=== PATIENT | female | born 1930 | race Caucasian/White ===

== ENCOUNTER 2016-07-05 14:01 | Observation (INO) | payer BC ==
[2016-07-05 14:07] VITALS: BMI 23.0
[2016-07-05 16:01] LABS: BASOPHIL 0.2 % (0-2.0); EOSINOPHIL 0.2 % (0-4.5); MCH 31.9 pg (25.7-33.7); MEAN CELL VOLUME 93.9 fl (80-96); MEAN PLT VOLUME 8.8 fl (7.5-11.1); NEUTROPHILS 88.7 % (42.8-82.8); PLATELET COUNT 262 K/MM3 (134-434); RDW 12.9 % (11.6-15.6); WHITE BLOOD COUNT 14.3 K/mm3 (4.0-10.0)
[2016-07-05 16:03] LABS: URINE APPEARANCE CLEAR; URINE BILIRUBIN NEGATIVE (NEGATIVE); URINE BLOOD NEGATIVE (NEGATIVE); URINE COLOR LTYELLOW; URINE GLUCOSE (UA) NEGATIVE (NEGATIVE); URINE KETONE 1+ (NEGATIVE); URINE LEUK ESTERASE NEGATIVE (NEGATIVE); URINE NITRITE NEGATIVE (NEGATIVE); URINE PROTEIN NEGATIVE (NEGATIVE); URINE UROBILINOGEN NEGATIVE E.U./dl (0.2-1.0)
--- NOTE | 2016-07-05 16:18 | PDOC ---
History of Present Illness - General History Source: Patient, Friend Exam Limitations: No Limitations <Jovanny Garsia - Last Filed: 07/05/16 18:46> - General History Source: Patient Exam Limitations: No Limitations <Reed Del Valle - Last Filed: 07/05/16 20:01> - General Chief Complaint: Syncope/Near Syncope Stated Complaint: SYNCOPE Time Seen by Provider: 07/05/16 14:09 - History of Present Illness Initial Comments: The patient is a 86 year old female, accompanied by friend, with a significant past medical history of hypertension, hyperlipidemia, anxiety, and dementia, who presents to the emergency department today for further evaluation of pre- syncope today. The patient states that at 1200 today she did some heavy gardening for 45 minutes and went inside with her friend. Friend states that she sat the patient down and the patient seemed generally weak, sweaty appearing and had brief period where she seemed confused. Patient reports associated blurred and darkening vision and a mild headache. The patient notes that her episode was 15 minutes in duration and that her symptoms have since resolved after EMS got there, per EMS pt was noted to be hypotensive and mildly bradycardic upon tehir arrival. The patient denies fever, chills. dysuria. The patient denies nausea, vomiting, and diarrhea. The patient denies chest pain, cough, and shortness of breath. PCP: Dr. Mckinney [phone] PAST MEDICAL HISTORY: HTN, hyperlipidemia, anxiety, dementia PAST SURGICAL HISTORY: No significant history reported FAMILY HISTORY: No pertinent history reported SOCIAL HISTORY: 2 drinks daily. MEDICATIONS: Reviewed ALLERGIES: As per nursing notes (Jovanny Garsia) Past History <Jovanny Garsia - Last Filed: 07/05/16 18:46> - Past Medical History HTN: Yes Hypercholesterolemia: Yes Suicide Attempt (Hx): No - Psycho/Social/Smoking Cessation Hx Anxiety: No Suicidal Ideation: No Smoking Status: No Smoking History: Never smoked Have you smoked in the past 12 months: No Number of Cigarettes Smoked Daily: 0 Cigars Per Day: 0 Information on smoking cessation initiated: No Hx Alcohol Use: Yes Drug/Substance Use Hx: No Substance Use Type: None Hx Substance Use Treatment: No <Reed Del Valle - Last Filed: 07/05/16 20:01> - Past Medical History Allergies/Adverse Reactions: Allergies Allergy/AdvReac Type Severity Reaction Status Date / Time amoxicillin [Amoxicillin] Allergy Rash Verified 07/05/16 14:05 bacitracin Allergy Verified 07/05/16 14:05 codeine [Codeine] Allergy Rash Verified 07/05/16 14:05 lorazepam [From Ativan] Allergy Verified 07/05/16 14:05 Penicillins Allergy Rash Verified 07/05/16 14:05 sertraline HCl [From Zoloft] Allergy Verified 07/05/16 14:05 Sulfa (Sulfonamide Allergy Verified 07/05/16 14:05 Antibiotics) sulfamethoxazole Allergy Verified 07/05/16 14:05 [From Bactrim] trimethoprim [From Bactrim] Allergy Verified 07/05/16 14:05 Home Medications: Ambulatory Orders Aspirin Chewable [Ever Children's Aspirin] 81 mg PO DAILY #0 tab.chew 03/20/11 Amlodipine Besylate [Norvasc -] 5 mg PO DAILY 07/11/15 Rivastigmine Tartrate [Exelon (Nf) -] 3 mg PO BID@0800,1730 07/05/16 Review of Systems - Review of Systems Able to Perform ROS?: Yes <Jovanny Garsia - Last Filed: 07/05/16 18:46> <Reed Del Valle - Last Filed: 07/05/16 20:01> - Review of Systems Comments:: CONSTITUTIONAL: Reported: Generalized weakness, diaphoretic No reported: Fever, Chills,Malaise, Loss of Appetite HEENT: Reported: Blurred vision, darkening vision. No reported: Rhinorrhea, Nasal Congestion, Throat Pain, Throat Swelling, Difficulty Swallowing, Mouth Swelling, Ear Pain, Eye Pain. CARDIOVASCULAR: Reported: Pre-Syncope No reported: Chest Pain, Palpitations, Irregular Heart Rate, Lightheadedness, Peripheral Edema RESPIRATORY: No reported: Cough, Shortness of Breath, SOB with Exertion, Orthopnea, Wheezing , Stridor, Hemoptysis GASTROINTESTINAL: No reported: Abdominal pain, Abdominal Distension, Nausea, Vomiting, Diarrhea, Constipation, Melena, Hematochezia GENITOURINARY: No reported: Dysuria, Frequency, Urgency, Hesitancy, Flank Pain, Genital Pain MUSCULOSKELETAL: No reported: Myalgia, Arthralgia, Joint Swelling, Back pain, Neck Pain SKIN: No reported: Rash, Itching, Pallor HEMATOLOGIC/IMMUNOLOGIC: No reported: Easy Bleeding, Easy Bruising, Lymphadenopathy, Frequent infections ENDOCRINE: No reported: Unexplained Weight Gain, Unexplained Weight Loss, Heat Intolerance , Cold Intolerance NEUROLOGIC: Reported: Difficulty speaking, mild headache. No reported: Headache, Focal Weakness, Paresthesias, Vertigo, Lightheadedness, Incontinence PSYCHIATRIC: No reported: Anxiety, Depression (AdyJovanny) *Physical Exam <Jovanny Garsia - Last Filed: 07/05/16 18:46> <Reed Del Valle - Last Filed: 07/05/16 20:01> - Vital Signs Last Vital Signs Temp Pulse Resp BP Pulse Ox 97.3 F L 66 20 152/81 100 07/05/16 14:05 07/05/16 14:05 07/05/16 14:05 07/05/16 14:05 07/05/16 14:05 - Physical Exam Comments: GENERAL: The patient is awake, alert, and fully oriented, Nontoxic - in no acute distress. HEAD: Normocephalic, atraumatic. EYES: extraocular movements intact, sclera anicteric, conjunctiva clear. ENT: Normal voice, Moist mucous membranes. NECK: Normal range of motion, No JVD LUNGS: Breath sounds equal, clear to auscultation bilaterally. No wheezes, no rhonchi, no rales. HEART: Regular rate and rhythm, normal S1 and S2 without murmur, rub or gallop. ABDOMEN: Soft, nontender, normoactive bowel sounds. No guarding, no rebound. No masses. No CVA tenderness EXTREMITIES: Normal range of motion, no edema. No clubbing or cyanosis. No cords , erythema, or tenderness. NEUROLOGICAL: No facial asymmetry. PSYCH: Normal mood, normal affect. SKIN: Warm, Dry, normal turgor. (Jovanny Garsia) Heart Score/ECG Review <Jovanny Garsia - Last Filed: 07/05/16 18:46> <Reed Del Valle - Last Filed: 07/05/16 20:01> - ECG Impressions Comment:: 07/05/16 16:41 Twelve-lead EKG was performed and reviewed by me. There is normal sinus rhythm with a normal rate. Rate of 68 The axis is normal. The intervals are normal. There is normal R wave progression There are no ST or T wave abnormalities. Impression: Normal twelve-lead EKG (Reed Del Valle) ED Treatment Course - LABORATORY CBC & Chemistry Diagram: 07/05/16 15:08 07/05/16 15:08 <Jovanny Garsia - Last Filed: 07/05/16 18:46> - LABORATORY CBC & Chemistry Diagram: 07/05/16 15:08 07/05/16 15:08 <Reed Del Valle - Last Filed: 07/05/16 20:01> - ADDITIONAL ORDERS Additional order review: Laboratory Results 07/05/16 07/05/16 15:08 15:08 Sodium 138 Potassium 3.4 L Chloride 101 Carbon Dioxide 25 Anion Gap 12 BUN 10 Creatinine 0.6 Creat Clearance w eGFR > 60 Random Glucose 112 H Calcium 8.5 Magnesium 2.3 Total Bilirubin 0.7 D AST 20 D ALT 20 Alkaline Phosphatase 87 Creatine Kinase 98 Troponin I < 0.02 Total Protein 6.9 Albumin 3.7 Urine Color Ltyellow Urine Appearance Clear Urine pH 8.0 Ur Specific [place] 1.015 Urine Protein Negative Urine Glucose (UA) Negative Urine Ketones 1+ H Urine Blood Negative Urine Nitrite Negative Urine Bilirubin Negative Urine Urobilinogen Negative Ur Leukocyte Esterase Negative 07/05/16 15:08 RBC 4.28 MCV 93.9 MCHC 34.0 RDW 12.9 MPV 8.8 Neutrophils % 88.7 H Lymphocytes % 6.5 L D Monocytes % 4.4 Eosinophils % 0.2 Basophils % 0.2 - RADIOLOGY Radiology Studies Ordered: Category Date Time Status CHEST X-RAY PORTABLE* [RAD] Stat Radiology 07/05/16 14:33 Completed Radiograph Interpretation: 07/05/16 16:19 EXAM#: TYPE/EXAM: RESULT: [id number] RAD/CHEST X-RAY PORTABLE* Syncope Portable chest x-ray AP sitting. Since 07/11/2015, the cardiac silhouette remains borderline in size with mild unfolding of the aortic arch and mild perihilar increased lung markings. Mediastinum and visualized osseous structures appear intact Impression: No significant interval change or acute lung disease is present. Reported By: Anabelle Blue MD 07/05/16 4071 (Jovanny Garsia) - Medications Given in the ED: ED Medications Discontinued Medications Generic Name Dose Route Start Last Admin Trade Name Unruly PRN Reason Stop Dose Admin Potassium Chloride 40 meq 07/05/16 18:57 07/05/16 19:17 K-Dur - PO 07/05/16 18:58 40 meq ONCE ONE Administration Medical Decision Making <DarrianJovanny cohen - Last Filed: 07/05/16 18:46> <EligioReed - Last Filed: 07/05/16 20:01> - Medical Decision Making 07/05/16 17:33 First call placed to Dr. Mckinney. Awaiting call back. 07/05/16 17:44 Dr. Davies recreational therapy aide for Dr. Mckinney. Case discussed. (Jovanny Garsia) 07/05/16 16:38 86y F hx of htn, hl, anxiety, dementia, presents with a complaint of sycnope - pt was feeling well thsi morning and was gardening, after gardening pt had an episode of diaphoresis, confusion, weakness, darkening vision and seemed confused for ~15 minutes, EMS noted the pt to be bradycardic and hypotensive upon their arrival. Pt currently asymptomatic. 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 I have reviewed the details of the note, within reason, and agree with the documentation with the following case summary and management plan written by me 07/05/16 18:12 labs reviewed nteo for leukocytosis, however no clinical signs nor laboratory evidence of infection electrolytes unremarkble trop neg x 1 ua unremarkable case dw/ dr. Davies, covering for PMD agree with observation admission will place in telemetry case dw MARIETTA Aguiar agree Case discussed in detail with admitting physician including history, physical exam and ancillary studies. Admitting physician has assumed care for the patient, will follow all pending diagnostics and will complete the evaluation and treatment. 07/05/16 19:59 Family: Son - Teo Lockett [phone] Daugther - Esperanza Lockett [phone] 07/05/16 20:00 (Reed Del Valle) *DC/Admit/Observation/Transfer <Jovanny Garsia - Last Filed: 07/05/16 18:46> - Discharge Dispostion Admit: Yes <Reed Del Valle - Last Filed: 07/05/16 20:01> Diagnosis at time of Disposition: Pre-syncope - Referrals - Attestations Scribe Attestion: Documentation prepared by Jovanny Garsia, acting as diagnostic medical sonographer for Reed Del Valle MD. (Jovanny Garsia)
[2016-07-05 16:26] LABS: ALBUMIN 3.7 g/dl (3.4-5.0); ANION GAP 12 (8-16); BILIRUBIN,TOTAL 0.7 mg/dL (0.2-1.0); CALCIUM 8.5 mg/dL (8.5-10.1); CO2 25 mmol/L (21-32); CREATININE 0.6 mg/dL (0.55-1.02); GLUCOSE,RANDOM 112 mg/dL (74-106); MAGNESIUM 2.3 mg/dL (1.8-2.4); SGOT/AST 20 U/L (15-37); SGPT/ALT 20 U/L (12-78); TOT PROT 6.9 g/dl (6.4-8.2)
[2016-07-05 16:29] LABS: ALK PHOS 87 U/L (45-117); TROPONIN I < 0.02 ng/ml (0.00-0.05)
--- NOTE | 2016-07-05 18:18 | HP ---
CHIEF COMPLAINT: pre syncope PCP: From [facility] HISTORY OF PRESENT ILLNESS: 86y F presents with a complaint of sycnope - pt was feeling well thsi morning and was gardening, after gardening pt had an episode of diaphoresis, confusion, weakness, darkening vision and seemed confused for ~15 minutes, EMS noted the pt to be bradycardic and hypotensive upon their arrival. Pt currently asymptomatic. differential includes hypoglycemia, vagal episode, anemia, metabolic derangement , occult infection/uti ER course was notable for: (1) vagal episode prehospital: found to be bradycadia by EMS but witnessed by family (2) (3) Recent Travel: none PAST MEDICAL HISTORY: htn, hl, anxiety, dementia PAST SURGICAL HISTORY: Family History: Allergies amoxicillin [Amoxicillin] Allergy (Verified 07/05/16 14:05) Rash bacitracin Allergy (Verified 07/05/16 14:05) codeine [Codeine] Allergy (Verified 07/05/16 14:05) Rash lorazepam [From Ativan] Allergy (Verified 07/05/16 14:05) Penicillins Allergy (Verified 07/05/16 14:05) Rash sertraline HCl [From Zoloft] Allergy (Verified 07/05/16 14:05) Sulfa (Sulfonamide Antibiotics) Allergy (Verified 07/05/16 14:05) sulfamethoxazole [From Bactrim] Allergy (Verified 07/05/16 14:05) trimethoprim [From Bactrim] Allergy (Verified 07/05/16 14:05) HOME MEDICATIONS: Home Medications Medication Instructions Recorded Aspirin Chewable [Ever Children's 81 mg PO DAILY #0 tab.chew 03/20/11 Aspirin] Amlodipine Besylate [Norvasc -] 5 mg PO DAILY 07/11/15 Rivastigmine Tartrate [Exelon (Nf) 3 mg PO BID@0800,1730 07/05/16 -] REVIEW OF SYSTEMS CONSTITUTIONAL: Absent: fever, chills, diaphoresis, generalized weakness, malaise, loss of appetite, weight change HEENT: Absent: rhinorrhea, nasal congestion, throat pain, throat swelling, difficulty swallowing, mouth swelling, ear pain, eye pain, visual changes CARDIOVASCULAR: Absent: chest pain,(+) syncope, palpitations, irregular heart rate, lightheadedness, peripheral edema RESPIRATORY: Absent: cough, shortness of breath, dyspnea with exertion, orthopnea, wheezing, stridor, hemoptysis GASTROINTESTINAL: Absent: abdominal pain, abdominal distension, nausea, vomiting, diarrhea, constipation, melena, hematochezia GENITOURINARY: Absent: dysuria, frequency, urgency, hesitancy, hematuria, flank pain, genital pain MUSCULOSKELETAL: Absent: myalgia, arthralgia, joint swelling, back pain, neck pain SKIN: Absent: rash, itching, pallor HEMATOLOGIC/IMMUNOLOGIC: Absent: easy bleeding, easy bruising, lymphadenopathy, frequent infections ENDOCRINE: Absent: unexplained weight gain, unexplained weight loss, heat intolerance, cold intolerance NEUROLOGIC: Absent: headache, focal weakness or paresthesias, dizziness, unsteady gait, seizure, mental status changes, bladder or bowel incontinence PSYCHIATRIC: Absent: anxiety, depression, suicidal or homicidal ideation, hallucinations. PHYSICAL EXAMINATION Vital Signs - 24 hr 07/05/16 14:05 Temperature 97.3 F L Pulse Rate 66 Respiratory 20 Rate Blood Pressure 152/81 O2 Sat by Pulse 100 Oximetry (%) GENERAL: Awake, alert, and fully oriented, in no acute distress. HEAD: Normal with no signs of trauma. NECK: Normal range of motion, supple without lymphadenopathy, JVD, or masses. LUNGS: Breath sounds equal, clear to auscultation bilaterally. No wheezes, and no crackles. No accessory muscle use. HEART: Regular rate and rhythm, normal S1 and S2 without murmur, rub or gallop. ABDOMEN: Soft, nontender, not distended, normoactive bowel sounds, no guarding, no rebound, no masses. No hepatomegaly or splenomegaly. MUSCULOSKELETAL: Normal range of motion at all joints. No bony deformities or tenderness. No CVA tenderness. UPPER EXTREMITIES: 2+ pulses, warm, well-perfused. No cyanosis. No clubbing. No peripheral edema. LOWER EXTREMITIES: 2+ pulses, warm, well-perfused. No calf tenderness. No peripheral edema. NEUROLOGICAL: Cranial nerves II-XII intact. Normal speech. Normal gait. PSYCHIATRIC: Cooperative. Good eye contact. Appropriate mood and affect. SKIN: Warm, dry, normal turgor, no rashes or lesions noted, normal capillary refill. Laboratory Results - last 24 hr 07/05/16 07/05/16 07/05/16 15:08 15:08 15:08 WBC 14.3 H D RBC 4.28 Hgb 13.6 Hct 40.1 MCV 93.9 MCHC 34.0 RDW 12.9 Plt Count 262 D MPV 8.8 Neutrophils % 88.7 H Lymphocytes % 6.5 L D Monocytes % 4.4 Eosinophils % 0.2 Basophils % 0.2 Sodium 138 Potassium 3.4 L Chloride 101 Carbon Dioxide 25 Anion Gap 12 BUN 10 Creatinine 0.6 Creat Clearance w eGFR > 60 Random Glucose 112 H Calcium 8.5 Magnesium 2.3 Total Bilirubin 0.7 D AST 20 D ALT 20 Alkaline Phosphatase 87 Creatine Kinase 98 Troponin I < 0.02 Total Protein 6.9 Albumin 3.7 Urine Color Ltyellow Urine Appearance Clear Urine pH 8.0 Urine Protein Negative Urine Glucose (UA) Negative Urine Ketones 1+ H Urine Blood Negative Urine Nitrite Negative Urine Bilirubin Negative Urine Urobilinogen Negative Ur Leukocyte Esterase Negative ASSESSMENT/PLAN: This 86 yr old female who had a witnessed near syncopal episode within the garden at her home with a neighbor present. She apparently became sweaty but eyes remained open but nonverbal. Pt neighbor called 911 and was brought in to ER for evaluation. 1. syncope -Head CT neg -EKG SB rate 66 -labs revealed wbc 14.5 -ua neg -cards consult ordered -first trop neg, 2,3rd ordered 2. HTN -continue meds 3. GI/DVT ppx 4. Admit tele inpatient Visit type - Emergency Visit Emergency Visit: Yes Care time: The patient presented to the Emergency Department on the above date and was hospitalized for further evaluation of their emergent condition. - New Patient This patient is new to me today: Yes Date on this admission: 07/05/16 - Critical Care Critical Care patient: No
--- NOTE | 2016-07-05 18:28 | CON.CARD ---
Consult Consult Specialty:: Cardiology Referred by:: Hospitalist Medicine Reason for Consultation:: Near syncope - History of Present Illness Chief Complaint: Near syncope History of Present Illness: 86y F hx of htn, hl, anxiety, dementia, presents with a complaint of syncope - pt was feeling well this morning and was gardening, after gardening pt had an episode of diaphoresis, confusion, weakness, light-headedness and darkening vision and seemed confused for ~15 minutes, EMS noted the pt to be bradycardic and hypotensive upon their arrival. Pt currently asymptomatic. She denies chest pain, dyspnea, palpitations, orthopnea, PND, LE edema or change in exercise capacity. 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 Cardio/Vascular: Yes: HTN Psych: Yes: Depression, Other (anxiety, claustrophobia) - Past Surgical History Past Surgical History: Yes: Hysterectomy - Alcohol/Substance Use Hx Alcohol Use: Yes - Smoking History Smoking history: Never smoked Have you smoked in the past 12 months: No Aproximately how many cigarettes per day: 0 - Social History ADL: Support Services History of Recent Travel: No Home Medications - Allergies Allergies/Adverse Reactions: Allergies Allergy/AdvReac Type Severity Reaction Status Date / Time amoxicillin [Amoxicillin] Allergy Rash Verified 07/05/16 14:05 bacitracin Allergy Verified 07/05/16 14:05 codeine [Codeine] Allergy Rash Verified 07/05/16 14:05 lorazepam [From Ativan] Allergy Verified 07/05/16 14:05 Penicillins Allergy Rash Verified 07/05/16 14:05 sertraline HCl [From Zoloft] Allergy Verified 07/05/16 14:05 Sulfa (Sulfonamide Allergy Verified 07/05/16 14:05 Antibiotics) sulfamethoxazole Allergy Verified 07/05/16 14:05 [From Bactrim] trimethoprim [From Bactrim] Allergy Verified 07/05/16 14:05 - Home Medications Home Medications: Ambulatory Orders Aspirin Chewable [Ever Children's Aspirin] 81 mg PO DAILY #0 tab.chew 03/20/11 Amlodipine Besylate [Norvasc -] 5 mg PO DAILY 07/11/15 Rivastigmine Tartrate [Exelon (Nf) -] 3 mg PO BID@0800,1730 07/05/16 Review of Systems - Review of Systems Neurological: reports: Dizziness - Risk Factors Known Risk Factors: Yes: Age, Gender, Hypertension Vital Signs: Vital Signs Temperature 97.3 F L 07/05/16 14:05 Pulse Rate 66 07/05/16 14:05 Respiratory Rate 20 07/05/16 14:05 Blood Pressure 152/81 07/05/16 14:05 O2 Sat by Pulse Oximetry (%) 100 07/05/16 14:05 Constitutional: Yes: No Distress, Calm Neck: Yes: Supple Respiratory: Yes: Regular, CTA Bilaterally Gastrointestinal: Yes: Normal Bowel Sounds, Soft Cardiovascular: Yes: Regular Rate and Rhythm JVD: No Carotid Bruit: No Heart Sounds: Yes: S1, S2 Murmur: Yes: Systolic Murmur, Grade 1 Edema: No - Other Data Labs, Other Data: CBC, BMP 07/05/16 15:08 07/05/16 15:08 Troponin, BNP 07/05/16 15:08 Troponin I < 0.02 Troponin, BNP 07/05/16 15:08 Troponin I < 0.02 Imaging - Results Chest X-ray: Report Reviewed (Radiograph Interpretation: 07/05/16 16:19 EXAM#: TYPE/EXAM: RESULT: [id number] RAD/CHEST X-RAY PORTABLE* Syncope Portable chest x- ray AP sitting. Since 07/11/2015, the cardiac silhouette remains borderline in size with mild unfolding of the aortic arch and mild perihilar increased lung markings. Mediastinum and visualized osseous structures appear intact Impression : No significant interval change or acute lung disease is present. Reported By: Anabelle Blue MD 07/05/16 3117 (Cheilta Garsia) Problem List - Problems (1) Hypertension Code(s): I10 - ESSENTIAL (PRIMARY) HYPERTENSION Qualifiers: Hypertension type: essential hypertension Qualified Code(s): I10 - Essential (primary) hypertension (2) Vaso vagal episode Code(s): R55 - SYNCOPE AND COLLAPSE (3) Dementia Code(s): F03.90 - UNSPECIFIED DEMENTIA WITHOUT BEHAVIORAL DISTURBANCE Qualifiers: Dementia type: unspecified type Dementia behavioral disturbance: without behavioral disturbance Qualified Code(s): F03.90 - Unspecified dementia without behavioral disturbance (4) Leukocytosis Code(s): D72.829 - ELEVATED WHITE BLOOD CELL COUNT, UNSPECIFIED Qualifiers: Leukocytosis type: unspecified Qualified Code(s): D72.829 - Elevated white blood cell count, unspecified Assessment/Plan 1. Syncope likely vasovagal with typical prodromal sxs 2. Hypertension 3. Dementia 4. Leukocytosis P:1. Check orthostatic VS, hydration, replete K 2. Continue ASA 81 qd, Norvasc 5 qd, studio operations manager to exclude sustained arrhythmia 3. Echo to assess LV and valve fxn, may be performed as outpatient 4. Addressed abortive maneuvers once prodromal sxs have been experienced 5. Thank you for consultative opportunity
[2016-07-05] MEDS ORDERED: POTASSIUM CHLORIDE TABS 20 MEQ TABLET.ER (FP) PO ONE ×2 (18:57→19:13)
[2016-07-05] MEDS ORDERED: PANTOPRAZOLE 40 MG TABLET (FP) ONE (19:13)
[2016-07-05] MEDS: PANTOPRAZOLE 40 MG TABLET (FP) PO SCH (19:17)
[2016-07-06 02:30] LABS: TROPONIN I < 0.02 ng/ml (0.00-0.05)
[2016-07-06 06:23] VITALS: TEMP 98.9
[2016-07-06] MEDS ORDERED: RIVASTIGMINE TARTRATE 1.5 MG CAPSULE PO SCH (08:00)
[2016-07-06 08:20] LABS: BASOPHIL 0.6 % (0-2.0); MCH 32.4 pg (25.7-33.7); MCHC 34.4 g/dl (32.0-36.0); MEAN CELL VOLUME 94.1 fl (80-96); MEAN PLT VOLUME 9.7 fl (7.5-11.1); NEUTROPHILS 68.8 % (42.8-82.8); PLATELET COUNT 236 K/MM3 (134-434); RDW 13.3 % (11.6-15.6); WHITE BLOOD COUNT 6.9 K/mm3 (4.0-10.0)
[2016-07-06 08:49] VITALS: BP 146/73; PULSE 70
[2016-07-06 08:59] LABS: ALBUMIN 3.2 g/dl (3.4-5.0); ALK PHOS 75 U/L (45-117); ANION GAP 10 (8-16); BILIRUBIN,TOTAL 0.7 mg/dL (0.2-1.0); CALCIUM 8.3 mg/dL (8.5-10.1); CO2 23 mmol/L (21-32); CREATININE 0.5 mg/dL (0.55-1.02); GLUCOSE,RANDOM 86 mg/dL (74-106); SGOT/AST 18 U/L (15-37); SGPT/ALT 17 U/L (12-78); TROPONIN I < 0.02 ng/ml (0.00-0.05)
[2016-07-06] MEDS ORDERED: PT OWN MED DRAWER 7, Y5N ONE (09:30)
[2016-07-06] MEDS: PANTOPRAZOLE 40 MG TABLET (FP) PO SCH (09:45)
[2016-07-06] MEDS ORDERED: ASPIRIN 81 MG CHEWABLE TABLETS PO SCH (10:00)
[2016-07-06] MEDS ORDERED: amLODIPine BESYLATE 5 MG TABLET (FP) PO SCH (10:00)
--- NOTE | 2016-07-06 13:59 | DS ---
Physical Exam: SUBJECTIVE: Patient seen and examined. She says she feels well she hasn't had anymore feelings of unrest or fainting. She is a huge proponent of walking. OBJECTIVE: Vital Signs Period Temp Pulse Resp BP Sys/Rodriguez Pulse Ox Last 24 Hr 97.6 F-98.9 F 69-77 18-20 130-153/67-94 96-99 PE Neuro: alert, awake, cn 2-12intact Pulm: CTAB CV: s1 s2 rrr Abd: s nt nd + bs Ext: LLE +1 pitting edema, warm Psych: mild nervousness (pt states chronic) Laboratory Results - last 24 hr 07/06/16 07/06/16 07/06/16 01:30 05:40 05:40 WBC 6.9 D RBC 3.99 Hgb 12.9 Hct 37.5 MCV 94.1 MCHC 34.4 RDW 13.3 Plt Count 236 MPV 9.7 D Neutrophils % 68.8 D Lymphocytes % 20.5 D Monocytes % 9.1 D Eosinophils % 1.0 D Basophils % 0.6 Sodium 140 Potassium 4.0 Chloride 107 Carbon Dioxide 23 Anion Gap 10 BUN 8 Creatinine 0.5 L Creat Clearance w eGFR > 60 Random Glucose 86 D Calcium 8.3 L Total Bilirubin 0.7 AST 18 ALT 17 Alkaline Phosphatase 75 Creatine Kinase 76 76 Troponin I < 0.02 < 0.02 Total Protein 6.0 L Albumin 3.2 L HOSPITAL COURSE: Date of Admission:07/05/16 Date of Discharge: 07/06/16 Minutes to complete discharge: 35 Discharge Summary Reason For Visit: PRE SYNCOPE Current Active Problems Dementia (Acute) Leukocytosis (Acute) Pre-syncope (Acute) Vaso vagal episode (Acute) Hospital Course: Initial Hospital Course: Briefly, this 86 year old female, accompanied by friend, with pmhx of HTN, HLD, anxiety, and dementia presented to the ED with pre-syncope episode. After doing heavy gardening with her [employer] garden for 45 mins went inside with her friend. Per the friend, pt was not feeling well, she sat the patient down and the patient seemed generally weak, sweaty appearing and had brief period where she seemed confused. Patient did report associated blurred and darkening vision and a mild headache. Per the patient she has never had this happen to her before and. Per EMS pt was noted to be hypotensive and mildly bradycardic upon their arrival. Subsequent Hospital Course/Progress Note/Discharge Summary by a/p: Assessment: 86 year old female admitted with pre syncope episode Plan: 1. Pre syncope - Resolved, no further symptoms likely vasovagal - Orthostatics negative - No infectious sign, no ischemia noted on tele - ECHO as outpt, Follow up on Sunday 07/[address] Ferraro, pt and daughter aware 2. HTN - Controlled - Norvasc 5mg daily 3. Dementia - Short term memory loss from [facility] benzo use for anxiety per pt, off for several years now - Cont exalon BID 4. Hypokalemia - Resolved 5. Leukocytosis - Resolved, likely reactive Dispo: - Home with daughter and cardiology follow up for ECHO in office Condition: Stable - Instructions Diet, Activity, Other Instructions: Please return to the ED for any new, persistent, or worsening symptoms. Follow up with your PCP in 1 week. Make an appt for Sunday 07/[address] Ferraro (cardiology) for an echocardiogram. He is expecting you (referral information enclosed) Resume home medication as directed Referrals: Russell Mckinney [Primary Care Provider] - Austen Ferraro MD [Staff Physician] - Disposition: HOME - Home Medications Comprehensive Discharge Medication List: Ambulatory Orders Aspirin Chewable [Ever Children's Aspirin] 81 mg PO DAILY #0 tab.chew 03/20/11 Amlodipine Besylate [Norvasc -] 5 mg PO DAILY 07/11/15 Rivastigmine Tartrate [Exelon (Nf) -] 3 mg PO BID@0800,1730 07/05/16 This patient is new to me today: Yes Date on this admission: 07/06/16 Emergency Visit: Yes ED Registration Date: 07/05/16 Care time: The patient presented to the Emergency Department on the above date and was hospitalized for further evaluation of their emergent condition. Critical Care patient: No - Discharge Referral Referred to [facility] No
--- NOTE | 2016-07-08 12:55 | EKG ---
Test Reason : Blood Pressure : / mmHG Vent. Rate : 068 BPM Atrial Rate : 068 BPM P-R Int : 170 ms QRS Dur : 078 ms QT Int : 430 ms P-R-T Axes : 076 -01 011 degrees QTc Int : 457 ms NORMAL SINUS RHYTHM NORMAL ECG WHEN COMPARED WITH ECG OF 11-JUL-2015 13:14, NO SIGNIFICANT CHANGE WAS FOUND Confirmed by DEEPAK PALAFOX MD ([id number]) on 07/08/2016 12:54:46 PM Referred By: Confirmed By:DEEPAK PALAFOX MD
== END 2016-07-06 15:21 | disposition home or self-care (01) ==
LOC: JER 14:01 → JERBED 18:14 → J4W 21:53
PROVIDERS: ADMIT Internal Medicine; ATTEND Nurse Practitioner Acute Care
DX: R55 Syncope and collapse (principal); I10 Essential (primary) hypertension; E78.5 Hyperlipidemia, unspecified; E87.6 Hypokalemia; F41.9 Anxiety disorder, unspecified; F03.90 Unspecified dementia, unspecified severity, without behavioral disturbance, psychotic disturbance, mood disturbance, and anxiety; D72.829 Elevated white blood cell count, unspecified; Z79.82 Long term (current) use of aspirin
CPT/HCPCS: 36415; 71010-TC; 80053; 81003; 82550; 83735; 84484; 85025; 93005; 93010; 99285-25; G0378

== ENCOUNTER 2017-05-20 11:04 | Observation (INO) | payer BC ==
[2017-05-20 11:17] VITALS: BMI 21.1
--- NOTE | 2017-05-20 12:06 | PDOC ---
History of Present Illness - General History Source: Patient Exam Limitations: No Limitations - History of Present Illness Initial Comments: 05/20/17 14:22 The patient is an 86 year old female with past medical history of hypertension, hyperlipidemia, anxiety, and dementia, brought in by her family friend, who presents to the ED after a pre-syncopal episode today. As per family friend, the patient was feeling hot and became pale this morning on her way to a doctors appointment followed by weakness in all extremities extremities and ringing in her ears. She also noticed the patient was speaking but with a very low volume. No LOC, pt was awake the entire time per family friend. When she tried to get the patient out of the car she was unable to ambulate, resulting in her coming to the ED. Upon arrival, the patient returned back to baseline, where she regained color and has been asymptomatic ever since. She denies ever losing consciousness, focal deficits, headache, or visual changes. The patient denies any recent fevers, chills, nausea, vomiting, diarrhea, cough, shortness of breath, chest pain, palpitations, or any urinary symptoms. PCP: Dr. Mckinney <Bebe Bill - Last Filed: 05/20/17 15:54> <Brittney Venegas - Last Filed: 05/20/17 16:58> - General Chief Complaint: CVA/TIA Stated Complaint: STROKE LIKE SYMPTOMS Time Seen by Provider: 05/20/17 11:38 Past History <Bebe Bill - Last Filed: 05/20/17 15:54> - Past Medical History COPD: No Dementia: Yes HTN: Yes Hypercholesterolemia: Yes - Suicide/Smoking/Psychosocial Hx Smoking Status: No Smoking History: Never smoked Have you smoked in the past 12 months: No Number of Cigarettes Smoked Daily: 0 Cigars Per Day: 0 Hx Alcohol Use: Yes Drug/Substance Use Hx: No Substance Use Type: None Hx Substance Use Treatment: No <Brittney Venegas - Last Filed: 05/20/17 16:58> - Past Medical History Allergies/Adverse Reactions: Allergies Allergy/AdvReac Type Severity Reaction Status Date / Time amoxicillin [Amoxicillin] Allergy Rash Verified 05/20/17 11:52 bacitracin Allergy Verified 05/20/17 11:52 codeine [Codeine] Allergy Rash Verified 05/20/17 11:52 lorazepam [From Ativan] Allergy Verified 05/20/17 11:52 Penicillins Allergy Rash Verified 05/20/17 11:52 sertraline HCl [From Zoloft] Allergy Verified 05/20/17 11:52 Sulfa (Sulfonamide Allergy Verified 05/20/17 11:52 Antibiotics) sulfamethoxazole Allergy Verified 05/20/17 11:52 [From Bactrim] trimethoprim [From Bactrim] Allergy Verified 05/20/17 11:52 Home Medications: Ambulatory Orders Aspirin Chewable [Ever Children's Aspirin] 81 mg PO DAILY #0 tab.chew 03/20/11 Amlodipine Besylate [Norvasc -] 5 mg PO DAILY 07/11/15 Rivastigmine Tartrate [Exelon (Nf) -] 3 mg PO BID@0800,1730 07/05/16 Bupropion HCl [Wellbutrin Xl] 300 mg PO HS 05/20/17 Review of Systems - Review of Systems Able to Perform ROS?: Yes Comments:: 05/20/17 14:23 GENERAL/CONSTITUTIONAL: Present No fever or chills. HEAD, EYES, EARS, NOSE AND THROAT: No change in vision. No ear pain or discharge. No sore throat. GASTROINTESTINAL: No nausea, vomiting, diarrhea or constipation. GENITOURINARY: No dysuria, frequency, or change in urination. CARDIOVASCULAR: No chest pain or shortness of breath. RESPIRATORY: No cough, wheezing, or hemoptysis. MUSCULOSKELETAL: No joint or muscle swelling or pain. No neck or back pain. SKIN: No rash NEUROLOGIC:No vertigo, headache, loss of consciousness. ENDOCRINE: No increased thirst. No abnormal weight change. HEMATOLOGIC/LYMPHATIC: No anemia, easy bleeding, or history of blood clots. ALLERGIC/IMMUNOLOGIC: No hives or skin allergy. All Other Systems: Reviewed and Negative <Bebe Bill - Last Filed: 05/20/17 15:54> *Physical Exam - Vital Signs Last Vital Signs Temp Pulse Resp BP Pulse Ox 66 19 157/85 99 05/20/17 11:14 05/20/17 11:14 05/20/17 11:14 05/20/17 11:35 - Physical Exam Comments: 05/20/17 14:23 GENERAL: Awake, alert, and fully oriented, in no acute distress HEAD: No signs of trauma EYES: PERRLA, EOMI, sclera anicteric, conjunctiva clear ENT: Auricles normal inspection, hearing grossly normal, nares patent, oropharynx clear without exudates. Moist mucosa NECK: Normal ROM, supple, no lymphadenopathy, JVD, or masses LUNGS: Breath sounds equal, clear to auscultation bilaterally. No wheezes, and no crackles HEART: Regular rate and rhythm, normal S1 and S2, no murmurs, rubs or gallops ABDOMEN: Soft, nontender, normoactive bowel sounds. No guarding, no rebound. No masses EXTREMITIES: Normal range of motion, no edema. No clubbing or cyanosis. No cords, erythema, or tenderness BACK: No midline spinal tenderness in cervical/thoracic/lumbar region NEUROLOGICAL: Normal speech, cranial nerves intact, negative pronator drift, 5/ 5 strength in all 4 extremities, normal sensation to light touch in all 4 extremities, normal cerebellar exam, normal gait, normal reflexes and tone SKIN: Warm, Dry, normal turgor, no rashes or lesions noted. <Bebe Bill - Last Filed: 05/20/17 15:54> - Vital Signs Last Vital Signs Temp Pulse Resp BP Pulse Ox 66 19 157/85 99 05/20/17 11:14 05/20/17 11:14 05/20/17 11:14 05/20/17 11:35 <Brittney Venegas - Last Filed: 05/20/17 16:58> ED Treatment Course - LABORATORY CBC & Chemistry Diagram: 05/20/17 12:20 05/20/17 11:57 - ADDITIONAL ORDERS Additional order review: Laboratory Results 05/20/17 12:20 PTT (Actin FS) 27.9 05/20/17 12:20 RBC 4.24 MCV 94.1 MCHC 34.3 RDW 12.4 MPV 8.9 Neutrophils % 86.1 H D Lymphocytes % 8.2 D Monocytes % 5.0 Eosinophils % 0.4 Basophils % 0.3 - RADIOLOGY Radiograph Interpretation: 05/20/17 15:[address] as reviewed by Dr. Hale reports no evidence of acute intracranial pathology. 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 There has been no definite interval change in comparison to a prior CT study of 07/12/2015. Chest X-ray as reviewed by Dr. Blue reports mild cardiomegaly without evidence of lung disease. <Bebe Bill - Last Filed: 05/20/17 15:54> - LABORATORY CBC & Chemistry Diagram: 05/20/17 12:20 05/20/17 11:57 - RADIOLOGY Radiology Studies Ordered: Category Date Time Status HEAD CT WITHOUT CONTRAST [CT] Stat CT Scan 05/20/17 11:58 Ordered CHEST X-RAY PORTABLE* [RAD] Stat Radiology 05/20/17 11:58 Ordered <Brittney Venegas - Last Filed: 05/20/17 16:58> Medical Decision Making - Medical Decision Making 05/20/17 13:05 Daughter: Shi Mendoza Elodia Harrell (Family friend) 05/20/17 14:52 Microblog sent to [facility]. Awaiting call back. 05/20/17 15:55 Phone call returned by [facility]. Case discussed. <Bebe Bill - Last Filed: 05/20/17 15:54> - Medical Decision Making 05/20/17 12:03 86-year-old female with multiple medical problems presents emergency Department with presyncopal episode this morning. Vitals unremarkable. Exam currently completely normal, patient is neurologically intact. Story sounds most like a presyncopal episode of unknown etiology. DDX includes but not limited to cardiac syncope vs infection vs dehydration vs electrolyte abnormality. Plan: -monitor -labs -CXR -CTH -UA -obs admit 05/20/17 16:08 Work-up remarkable for UTI. CTH negative. Pt with PCN allergy, given levaquin 500mg. Case discussed with MARIETTA Clement, pt admitted to Dr. Loo under tele obs. Case discussed in detail with admitting physician including history, physical exam and ancillary studies. Admitting physician has assumed care for the patient, will follow all pending diagnostics and will complete the evaluation and treatment. <Brittney Venegas - Last Filed: 05/20/17 16:58> *DC/Admit/Observation/Transfer - Attestations Scribe Attestion: 05/20/17 14:23 Documentation prepared by Bebe Bill, acting as medical case manager for Brittney Venegas MD. <Bebe Bill - Last Filed: 05/20/17 15:54> - Discharge Dispostion Admit: Yes - Attestations Physician Attestion: 05/20/17 16:58 I, Dr. Brittney Venegas MD, attest that this document has been prepared under my direction and personally reviewed by me in its entirety. I further attest, that it accurately reflects all work, treatment, procedures and medical decision -making performed by me. <Brittney Venegas - Last Filed: 05/20/17 16:58> Diagnosis at time of Disposition: Pre-syncope - Discharge Dispostion Condition at time of disposition: Stable - Referrals Referrals: Russell Mckinney [Primary Care Provider] - - Patient Instructions - Post Discharge Activity
[2017-05-20 12:32] LABS: BASO % 0.3 % (0-2.0); EOS % 0.4 % (0-4.5); HEMATOCRIT 39.9 % (32.4-45.2); HEMOGLOBIN 13.7 GM/dL (10.7-15.3); LYMPH % 8.2 % (8-40); MCH 32.3 pg (25.7-33.7); MCHC 34.3 g/dl (32.0-36.0); MEAN CELL VOLUME 94.1 fl (80-96); MEAN PLT VOLUME 8.9 fl (7.5-11.1); NEUT % 86.1 % (42.8-82.8); PLATELET COUNT 277 K/MM3 (134-434); RBC 4.24 M/mm3 (3.60-5.2); RDW 12.4 % (11.6-15.6); WHITE BLOOD COUNT 10.1 K/mm3 (4.0-10.0)
[2017-05-20 13:23] LABS: ALBUMIN 3.6 g/dl (3.4-5.0); ANION GAP 7 (8-16); BLOOD UREA NITROGEN 11 mg/dL (7-18); CALCIUM 8.7 mg/dL (8.5-10.1); CHLORIDE 100 mmol/L (98-107); CO2 28 mmol/L (21-32); CREATININE 0.6 mg/dL (0.55-1.02); GLUCOSE,RANDOM 152 mg/dL (74-106); SGPT/ALT 16 U/L (12-78); SODIUM 135 mmol/L (136-145)
[2017-05-20 13:24] LABS: ALK PHOS 101 U/L (45-117); BILIRUBIN,TOTAL 0.4 mg/dL (0.2-1.0)
[2017-05-20 13:25] LABS: POTASSIUM 3.8 mmol/L (3.5-5.1)
[2017-05-20 13:37] LABS: URINE APPEARANCE SLCLOUDY; URINE BILIRUBIN NEGATIVE (<2.0 mg/dL); URINE BLOOD 2+ (NEGATIVE); URINE COLOR YELLOW; URINE GLUCOSE (UA) NEGATIVE (NEGATIVE); URINE KETONE NEGATIVE (NEGATIVE); URINE LEUK ESTERASE NEGATIVE (NEGATIVE); URINE NITRITE POSITIVE (NEGATIVE); URINE PROTEIN NEGATIVE (NEGATIVE); URINE UROBILINOGEN NEGATIVE mg/dL (0.2-1.0)
[2017-05-20 13:41] LABS: N-TERMINAL BNP 130.45 pg/ml (5-450)
[2017-05-20 13:50] LABS: EPI CELLS RARE /HPF (FEW); URINE BACTERIA RARE /hpf (NONE SEEN); URINE MUCUS RARE
[2017-05-20 13:55] LABS: MAGNESIUM 2.2 mg/dL (1.8-2.4); SGOT/AST 22 U/L (15-37)
--- NOTE | 2017-05-20 16:19 | HP ---
CHIEF COMPLAINT: weakness, not feeling well, syncope PCP: HISTORY OF PRESENT ILLNESS: Patient is an 86 year old female with a significant past medical history of hypertension, hyperlipidemia, anxiety, and dementia. She is also noted to also have multiple allergies to different medications. She presents to the ED today for a pre syncopal episode. Patient reported that she did not feel well this morning, just felt as if something was wrong, felt weaker and more anxious. She endorses that she is a "very nervous person" but "felt off" as soon as she woke up. She was scheduled to see her physician for a routine follow up today and was accompanied by her friend who was to drive her to his office. On the way to see her doctor, her friend noted that the patient became pale, flushed and staring out, not focusing and answering questions in a low whisper. Patient told her friend that she felt as though she was going to pass out. Her friend became concerned and drove her to the hospital. On exam, patient is sitting up in the ED awaiting a room assignment. She is alert, coherent and answering questions appropriately. States that she is a very nervous person and suffers from panic disorder. She states that today she felt very weak, dizzy and unable to focus on her thoughts. She felt as though she was going to pass out. She further endorses urinary frequency for the past few days. She denies chest pain, denies shortness of breath. Denies visual defect or headaches. ER course was notable for: (1) WBC 10.1 (2) Na 135 (3) LA 1.2 Recent Travel: n/a PAST MEDICAL HISTORY: hypertension, hyperlipidemia, anxiety, and dementia PAST SURGICAL HISTORY: Social History: Smoking: denies Alcohol:denies Drugs: denies Family History: Allergies amoxicillin [Amoxicillin] Allergy (Verified 05/20/17 11:52) Rash bacitracin Allergy (Verified 05/20/17 11:52) codeine [Codeine] Allergy (Verified 05/20/17 11:52) Rash lorazepam [From Ativan] Allergy (Verified 05/20/17 11:52) Penicillins Allergy (Verified 05/20/17 11:52) Rash sertraline HCl [From Zoloft] Allergy (Verified 05/20/17 11:52) Sulfa (Sulfonamide Antibiotics) Allergy (Verified 05/20/17 11:52) sulfamethoxazole [From Bactrim] Allergy (Verified 05/20/17 11:52) trimethoprim [From Bactrim] Allergy (Verified 05/20/17 11:52) HOME MEDICATIONS: Home Medications Medication Instructions Recorded Aspirin Chewable [Ever Children's 81 mg PO DAILY #0 tab.chew 03/20/11 Aspirin] Amlodipine Besylate [Norvasc -] 5 mg PO DAILY 07/11/15 Rivastigmine Tartrate [Exelon (Nf) 3 mg PO BID@0800,1730 07/05/16 -] Bupropion HCl [Wellbutrin Xl] 300 mg PO 05/20/17 PHYSICAL EXAMINATION Vital Signs - 24 hr 05/20/17 05/20/17 11:14 11:35 Pulse Rate 66 Respiratory 19 Rate Blood Pressure 157/85 O2 Sat by Pulse 100 99 Oximetry (%) GENERAL: Awake, alert, and fully oriented, forgetful, nervous, shaky HEAD: Normal with no signs of trauma. EYES: Pupils equal, round and reactive to light, extraocular movements intact, sclera anicteric, conjunctiva clear. No lid lag. EARS, NOSE, THROAT: Ears normal, nares patent, oropharynx clear without exudates. Moist mucous membranes. NECK: Normal range of motion, supple without lymphadenopathy, JVD, or masses. LUNGS: Breath sounds equal, clear to auscultation bilaterally HEART: Regular rate and rhythm ABDOMEN: Soft, nontender, not distended, normoactive bowel sounds, no guarding, no rebound, no masses. No hepatomegaly or splenomegaly. MUSCULOSKELETAL: Normal range of motion at all joints. No bony deformities or tenderness. No CVA tenderness. UPPER EXTREMITIES: 2+ pulses, warm, well-perfused. No cyanosis. No clubbing. No peripheral edema. LOWER EXTREMITIES: 2+ pulses, warm, well-perfused. No calf tenderness. No peripheral edema. NEUROLOGICAL: Normal speech. Normal gait. PSYCHIATRIC: anxious, shaky, nervous Laboratory Results - last 24 hr 05/20/17 05/20/17 05/20/17 11:57 12:20 12:20 WBC 10.1 H D RBC 4.24 Hgb 13.7 Hct 39.9 MCV 94.1 MCH 32.3 MCHC 34.3 RDW 12.4 Plt Count 277 MPV 8.9 Neutrophils % 86.1 H D Lymphocytes % 8.2 D Monocytes % 5.0 Eosinophils % 0.4 Basophils % 0.3 PTT (Actin FS) 27.9 Sodium 135 L Potassium 3.8 Chloride 100 Carbon Dioxide 28 Anion Gap 7 L BUN 11 Creatinine 0.6 Creat Clearance w eGFR > 60 Random Glucose 152 H Lactic Acid Calcium 8.7 Magnesium 2.2 Total Bilirubin 0.4 D AST 22 ALT 16 Alkaline Phosphatase 101 Troponin I < 0.02 B-Natriuretic Peptide 130.45 Total Protein 7.0 Albumin 3.6 Urine Color Urine Appearance Urine pH Ur Specific [place] Urine Protein Urine Glucose (UA) Urine Ketones Urine Blood Urine Nitrite Urine Bilirubin Urine Urobilinogen Ur Leukocyte Esterase Urine WBC (Auto) Urine RBC (Auto) Ur Epithelial Cells Urine Bacteria Urine Mucus Blood Type Antibody Screen 05/20/17 05/20/17 05/20/17 12:20 12:25 13:25 WBC RBC Hgb Hct MCV MCH MCHC RDW Plt Count MPV Neutrophils % Lymphocytes % Monocytes % Eosinophils % Basophils % PTT (Actin FS) Sodium Potassium Chloride Carbon Dioxide Anion Gap BUN Creatinine Creat Clearance w eGFR Random Glucose Lactic Acid 1.2 Calcium Magnesium Total Bilirubin AST ALT Alkaline Phosphatase Troponin I B-Natriuretic Peptide Total Protein Albumin Urine Color Yellow Urine Appearance Slcloudy Urine pH 5.0 D Ur Specific [place] 1.014 Urine Protein Negative Urine Glucose (UA) Negative Urine Ketones Negative Urine Blood 2+ H Urine Nitrite Positive Urine Bilirubin Negative Urine Urobilinogen Negative Ur Leukocyte Esterase Negative Urine WBC (Auto) 2 Urine RBC (Auto) 1 Ur Epithelial Cells Rare Urine Bacteria Rare Urine Mucus Rare Blood Type O POSITIVE Antibody Screen Negative ASSESSMENT/PLAN: Patient is an 86 year old female with a significant past medical history of hypertension, hyperlipidemia, anxiety, and dementia. She is also noted to also have multiple allergies to different medications. She presents to the ED today for a pre syncopal episode. Patient reported that she did not feel well this morning, just felt as if something was wrong, felt weaker and more anxious. She endorses that she is a "very nervous person" but "felt off" as soon as she woke up. She was scheduled to see her physician for a routine follow up today and was accompanied by her friend who was to drive her to his office. On the way to see her doctor, her friend noted that the patient became pale, flushed and staring out, not focusing and answering questions in a low whisper. Patient told her friend that she felt as though she was going to pass out. Her friend became concerned and drove her to the hospital. On exam, patient is sitting up in the ED awaiting a room assignment. She is alert, coherent and answering questions appropriately. States that she is a very nervous person and suffers from panic disorder. She states that today she felt very weak, dizzy and unable to focus on her thoughts. She felt as though she was going to pass out. She further endorses urinary frequency for the past few days. She denies chest pain, denies shortness of breath. Denies visual defect or headaches. Neuro: Pre-syncope, acute Head CT negative EKG with septal infarct Labs with WBC 10.1 UA noted, UC pending Given Levaquin 500mg in ED for uti r/o, urinary frequency reported First trop negative, trend Echo ordered Carotid doppler ordered Monitor on tele Physical therapy lipid panel in a.m. Cardiology: Hypertension, chronic Continue Norvasc Orthostatics q8 Cardiology follow up Hyperlipidemia lipid panel in am. Dementia On Exelon patch F.E.N. Fluids: Hydrate gently overnight with NS Electrolytes: monitor in am. Nutrition: dysphagia whole, advance as tolerated Prophy: LOS < 48 hours GI; deferred Disposition: tele obs, Likely d/c in a.m. Visit type - Emergency Visit Emergency Visit: Yes ED Registration Date: 05/20/17 Care time: The patient presented to the Emergency Department on the above date and was hospitalized for further evaluation of their emergent condition. - New Patient This patient is new to me today: Yes Date on this admission: 05/20/17 - Critical Care Critical Care patient: No Hospitalist Screening - Colonoscopy Questionnaire Colonoscopy Questionnaire: Colonoscopy Questionnaire - Patient: 50 - 75 years old and never had a screening colonoscopy: No History of colon or rectal polyps, or CA: No History of IBD, Crohn's disease or UC: No History of abdominal radiation therapy as a child: No - Relative: 1 with colon or rectal CA, or polyps at age 60 or younger: No Colon or rectal CA diagnosed at age 45 or younger: No Multiple relatives with colon or rectal CA: No - Outcome: Screening Result: Negative Screen
--- NOTE | 2017-05-20 16:52 | EKG ---
Test Reason : Blood Pressure : / mmHG Vent. Rate : 065 BPM Atrial Rate : 065 BPM P-R Int : 178 ms QRS Dur : 074 ms QT Int : 426 ms P-R-T Axes : 074 -13 -07 degrees QTc Int : 443 ms POOR DATA QUALITY, INTERPRETATION MAY BE ADVERSELY AFFECTED NORMAL SINUS RHYTHM SEPTAL INFARCT , AGE UNDETERMINED ABNORMAL ECG WHEN COMPARED WITH ECG OF 05-JUL-2016 14:27, SEPTAL INFARCT IS NOW PRESENT Confirmed by MD Pedro, Avery ([id number]) on 05/20/2017 4:52:25 PM Referred By: Confirmed By:Avery aVsquez MD
[2017-05-20] MEDS ORDERED: SODIUM CHLORIDE 1,000 ML IV SCH (21:45)
[2017-05-20] MEDS ORDERED: MELATONIN 1 MG TABLET PO SCH (22:00)
[2017-05-21 07:01] VITALS: TEMP 98.1
[2017-05-21 07:58] LABS: BASO % 0.4 % (0-2.0); EOS % 1.4 % (0-4.5); HEMATOCRIT 38.1 % (32.4-45.2); LYMPH % 17.3 % (8-40); MCHC 34.1 g/dl (32.0-36.0); MEAN CELL VOLUME 93.8 fl (80-96); MEAN PLT VOLUME 9.2 fl (7.5-11.1); MONO % 7.9 % (3.8-10.2); PLATELET COUNT 281 K/MM3 (134-434); RBC 4.07 M/mm3 (3.60-5.2); RDW 12.7 % (11.6-15.6); WHITE BLOOD COUNT 7.9 K/mm3 (4.0-10.0)
[2017-05-21 08:15] LABS: CHLORIDE 103 mmol/L (98-107); POTASSIUM 3.5 mmol/L (3.5-5.1); SODIUM 137 mmol/L (136-145)
[2017-05-21 08:23] LABS: ALBUMIN 3.4 g/dl (3.4-5.0); ALK PHOS 88 U/L (45-117); ANION GAP 8 (8-16); BILIRUBIN,TOTAL 0.5 mg/dL (0.2-1.0); BLOOD UREA NITROGEN 12 mg/dL (7-18); CALCIUM 8.6 mg/dL (8.5-10.1); CHOLESTEROL 181 mg/dL (50-200); CO2 26 mmol/L (21-32); CREATININE 0.6 mg/dL (0.55-1.02); GLUCOSE,RANDOM 86 mg/dL (74-106); HDL CHOLESTEROL 89 mg/dL (40-60); LDL CHOLESTEROL (ONLY SJRH) 89 mg/dL (5-100); MAGNESIUM 2.2 mg/dL (1.8-2.4); SGOT/AST 15 U/L (15-37); SGPT/ALT 14 U/L (12-78); TOT PROT 6.3 g/dl (6.4-8.2); TRIGLYCERIDES 66 mg/dL (35-160)
[2017-05-21] MEDS ORDERED: amLODIPine BESYLATE 5 MG TABLET (FP) PO SCH (10:00)
[2017-05-21] MEDS ORDERED: ASPIRIN 81 MG CHEWABLE TABLETS PO SCH (10:00)
[2017-05-21 10:31] VITALS: BP 149/82; PULSE 78
--- NOTE | 2017-05-21 14:56 | CON.CARD ---
Consult Consult Specialty:: Cardiology Referred by:: Hospitalist Medicine Reason for Consultation:: Near syncope - History of Present Illness Chief Complaint: Near syncope History of Present Illness: 86y F hx of htn, hl, anxiety, dementia, presents again with a complaint of near syncope associated with weakness, pallor, light-headedness, confusion, flushing and diaphoresis all since resolved. Pt currently asymptomatic. She denies chest pain, dyspnea, palpitations, orthopnea, PND, LE edema or change in exercise capacity. 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 Cardio/Vascular: Yes: HTN Psych: Yes: Depression, Other (anxiety, claustrophobia) - Past Surgical History Past Surgical History: Yes: Hysterectomy - Alcohol/Substance Use Hx Alcohol Use: Yes - Smoking History Smoking history: Never smoked Have you smoked in the past 12 months: No Aproximately how many cigarettes per day: 0 - Social History ADL: Support Services History of Recent Travel: No Home Medications - Allergies Allergies/Adverse Reactions: Allergies Allergy/AdvReac Type Severity Reaction Status Date / Time amoxicillin [Amoxicillin] Allergy Rash Verified 05/20/17 11:52 bacitracin Allergy Verified 05/20/17 11:52 codeine [Codeine] Allergy Rash Verified 05/20/17 11:52 lorazepam [From Ativan] Allergy Verified 05/20/17 11:52 Penicillins Allergy Rash Verified 05/20/17 11:52 sertraline HCl [From Zoloft] Allergy Verified 05/20/17 11:52 Sulfa (Sulfonamide Allergy Verified 05/20/17 11:52 Antibiotics) sulfamethoxazole Allergy Verified 05/20/17 11:52 [From Bactrim] trimethoprim [From Bactrim] Allergy Verified 05/20/17 11:52 - Home Medications Home Medications: Ambulatory Orders Aspirin Chewable [Ever Children's Aspirin] 81 mg PO DAILY #0 tab.chew 03/20/11 Amlodipine Besylate [Norvasc -] 5 mg PO DAILY 07/11/15 Rivastigmine Tartrate [Exelon (Nf) -] 3 mg PO BID@0800,1730 07/05/16 Bupropion HCl [Wellbutrin Xl] 300 mg PO HS 05/20/17 Review of Systems - Review of Systems Neurological: reports: Dizziness Vital Signs: Vital Signs Temperature 98.1 F 03/28/18 10:31 Pulse Rate 78 05/21/17 10:31 Respiratory Rate 16 05/21/17 10:31 Blood Pressure 149/82 05/21/17 10:31 O2 Sat by Pulse Oximetry (%) 96 05/21/17 10:31 Constitutional: Yes: No Distress, Calm, Thin Neck: Yes: Supple Respiratory: Yes: Regular, CTA Bilaterally Gastrointestinal: Yes: Normal Bowel Sounds, Soft Cardiovascular: Yes: Regular Rate and Rhythm JVD: No Carotid Bruit: No Heart Sounds: Yes: S1, S2 Murmur: Yes: Systolic Murmur, Grade 1 Edema: No - Other Data Labs, Other Data: CBC, BMP 05/21/17 06:20 05/21/17 06:20 Troponin, BNP 05/20/17 05/21/17 20:54 00:44 Troponin I < 0.02 < 0.02 Troponin, BNP 05/20/17 05/21/17 20:54 00:44 Troponin I < 0.02 < 0.02 NSR @ [address]-T changes Ejection Fraction %: LVEF > or = 40 % Imaging - Results Chest X-ray: Report Reviewed (NAD) Ultrasound: Report Reviewed (Carotid U/S-No stenosis) Problem List - Problems (1) Pre-syncope Code(s): R55 - SYNCOPE AND COLLAPSE (2) Altered mental status Code(s): R41.82 - ALTERED MENTAL STATUS, UNSPECIFIED Qualifiers: Altered mental status type: disorientation Qualified Code(s): R41.0 - Disorientation, unspecified (3) Dementia Code(s): F03.90 - UNSPECIFIED DEMENTIA WITHOUT BEHAVIORAL DISTURBANCE Qualifiers: Dementia type: unspecified type Dementia behavioral disturbance: without behavioral disturbance Qualified Code(s): F03.90 - Unspecified dementia without behavioral disturbance (4) Vaso vagal episode Code(s): R55 - SYNCOPE AND COLLAPSE (5) Hypertension Code(s): I10 - ESSENTIAL (PRIMARY) HYPERTENSION Qualifiers: Hypertension type: essential hypertension Qualified Code(s): I10 - Essential (primary) hypertension Assessment/Plan 05/21/2017 Echo: Normal biventricular size and fxn, mod AR, TR, mild MR 1. Syncope likely vasovagal with typical prodromal sxs and recurrence 2. Hypertension 3. Dementia P:1. Encourage oral hydration 2. Continue ASA 81 qd, Norvasc 5 qd, vehicle monitor technician showed no sustained arrhythmia or pauses 3. Extended arrhythmia monitor r/o pause and upright tilt table testing as outpatient 4. Addressed abortive maneuvers once prodromal sxs have been experienced 5. Thank you for consultative opportunity, june d/c from CV-standpoint with f/u in office for additional studies as described above ([phone].
--- NOTE | 2017-05-21 15:33 | DS ---
Physical Exam: SUBJECTIVE: Patient seen and examined in ED. She denies dizziness or unwell feeling. Eager to go home OBJECTIVE: Vital Signs Period Temp Pulse Resp BP Sys/Rodriguez Pulse Ox Last 24 Hr 97.3 F-98.1 F 78-83 14-18 144-154/82-92 95-99 PE Neuro: alert, awake, cn 2-12intact, moments of confusion improves with reorientation Pulm: CTAB CV: S1 s2 rrr Abd: s nt nd +bs Ext: warm, mild pedal edema Laboratory Results - last 24 hr 05/20/17 05/21/17 05/21/17 20:54 00:44 06:20 WBC 7.9 RBC 4.07 Hgb 13.0 Hct 38.1 MCV 93.8 MCH 32.0 MCHC 34.1 RDW 12.7 Plt Count 281 MPV 9.2 Neutrophils % 73.0 Lymphocytes % 17.3 D Monocytes % 7.9 Eosinophils % 1.4 D Basophils % 0.4 Sodium Potassium Chloride Carbon Dioxide Anion Gap BUN Creatinine Creat Clearance w eGFR Random Glucose Calcium Phosphorus Magnesium Total Bilirubin AST ALT Alkaline Phosphatase Troponin I < 0.02 < 0.02 Total Protein Albumin Triglycerides Cholesterol Total LDL Cholesterol HDL Cholesterol 05/21/17 05/21/17 06:20 06:20 WBC RBC Hgb Hct MCV MCH MCHC RDW Plt Count MPV Neutrophils % Lymphocytes % Monocytes % Eosinophils % Basophils % Sodium Cancelled 137 Potassium Cancelled 3.5 Chloride Cancelled 103 Carbon Dioxide Cancelled 26 Anion Gap Cancelled 8 BUN Cancelled 12 Creatinine Cancelled 0.6 Creat Clearance w eGFR Cancelled > 60 Random Glucose Cancelled 86 Calcium Cancelled 8.6 Phosphorus Cancelled 4.0 Magnesium 2.2 Total Bilirubin Cancelled 0.5 D AST Cancelled 15 ALT Cancelled 14 Alkaline Phosphatase Cancelled 88 Troponin I Total Protein Cancelled 6.3 L Albumin Cancelled 3.4 Triglycerides 66 Cholesterol 181 Total LDL Cholesterol 89 HDL Cholesterol 89 H HOSPITAL COURSE: Date of Admission:05/20/17 Date of Discharge: 05/21/17 Minutes to complete discharge: 37 Discharge Summary Reason For Visit: PRE-SYNCOPE Current Active Problems Pre-syncope (Acute) Hospital Course: Hospital Course: 86 year old female with pmhx of hypertension, hyperlipidemia, anxiety, and dementia presented with near syncope, weakness, pallor, flushing, confusion, diaphoresis. Pt was on her way to pcp office when friend noted change, she brought her to the ED. Total time about hour from start of symptoms to resolution. This same presentation happened 1 year ago. Imaging studies, CT Head, ECHO, carotid doppler negative UA negative No further symptom Seen by cardiology pt cleared for discharge with outpt follow up for tilt table and loop recorder, EKG findings likely lead placement, trops neg PT and friend at beside aware and agree to above plan Condition: Stable - Instructions Diet, Activity, Other Instructions: Please return to the ED for any new, persistent, or worsening symptoms. Follow up with your PCP in 1 week Referral for cardiology for tilt table test and loop recorder test and neurology enclosed in discharge paper work Continue home medications as directed Referrals: Juan Echols MD [Staff Physician] - 1 Week Russell Mckinney [Primary Care Provider] - Austen Ferraro MD [Staff Physician] - 2 Weeks (Follow up for tilt table test and loop recorder ) Disposition: HOME - Home Medications Comprehensive Discharge Medication List: Ambulatory Orders Aspirin Chewable [Ever Children's Aspirin] 81 mg PO DAILY #0 tab.chew 03/20/11 Amlodipine Besylate [Norvasc -] 5 mg PO DAILY 07/11/15 Rivastigmine Tartrate [Exelon (Nf) -] 3 mg PO BID@0800,1730 07/05/16 Bupropion HCl [Wellbutrin Xl] 300 mg PO HS 05/20/17 This patient is new to me today: Yes Date on this admission: 05/21/17 Emergency Visit: Yes ED Registration Date: 05/20/17 Care time: The patient presented to the Emergency Department on the above date and was hospitalized for further evaluation of their emergent condition. Critical Care patient: No - Discharge Referral Referred to [facility] Med [facility].: No
== END 2017-05-21 16:00 | disposition home or self-care (01) ==
LOC: JER 11:04 → JERBED 16:58
PROVIDERS: ADMIT Hospitalist; ATTEND Nurse Practitioner Acute Care
PROC: 3E03329 Introduction of Other Anti-infective into Peripheral Vein, Percutaneous Approach (ICD-10-PCS; principal; 2017-05-20)
PROC: 3E0337Z Introduction of Electrolytic and Water Balance Substance into Peripheral Vein, Percutaneous Approach (ICD-10-PCS; 2017-05-20)
DX: R55 Syncope and collapse (principal); R94.31 Abnormal electrocardiogram [ECG] [EKG]; I10 Essential (primary) hypertension; E78.5 Hyperlipidemia, unspecified; F41.9 Anxiety disorder, unspecified; R41.0 Disorientation, unspecified; F03.90 Unspecified dementia, unspecified severity, without behavioral disturbance, psychotic disturbance, mood disturbance, and anxiety; Z88.0 Allergy status to penicillin; Z88.1 Allergy status to other antibiotic agents; Z88.2 Allergy status to sulfonamides; Z88.8 Allergy status to other drugs, medicaments and biological substances; Z79.82 Long term (current) use of aspirin
CPT/HCPCS: 36415; 70450-TC; 71045-TC-FY; 80053; 80061; 81003; 81015; 83605; 83721; 83735; 83880; 84100; 84484; 85025; 85730; 86850; 86900; 86901; 87086; 93005; 93010; 93306-TC; 93880-TC; 96361; 96365; 99284-25; G0378; J7030

== ENCOUNTER 2018-12-18 18:47 | Inpatient (IN) | payer BC ==
--- NOTE | 2018-12-18 19:41 | PDOC ---
Attending Attestation - Resident Resident Name: Rodo Pradhan - ED Attending Attestation I have performed the following: I have examined & evaluated the patient, The case was reviewed & discussed with the resident, I agree w/resident's findings & plan
--- NOTE | 2018-12-18 19:59 | PDOC ---
Attending Attestation - Resident Resident Name: Rodo Pradhan - ED Attending Attestation I have performed the following: I have examined & evaluated the patient, The case was reviewed & discussed with the resident, I agree w/resident's findings & plan - HPI HPI: 12/18/18 19:58 Pt fell today; mechanical fall; she has left hip external rotation/shortening and pain. Pt struck her head during the fall. - Physicial Exam PE: 12/18/18 19:58 Agree with resident exam. - Medical Decision Making 12/18/18 19:58 CT head and hip; pt will be admitted for hip fracture. 12/18/18 21:18 Pt has a left femoral neck fracture; she will be admitted to the hospitalists and the orthopedist will be called. 12/18/18 22:06 Ortho MD Nicki is at the bedside. Spoke to patient and her son; evaluated the patient and he will plan for surg after admission. Pt will be admitted to the hospitalist team. 12/18/18 22:08 CXR: boot shaped heart on portable view 12/18/18 22:12 Pt appropriate analgesia; she is comfortable
[2018-12-18] MEDS ORDERED: ACETAMINOPHEN 500 MG TABLET (FP) PO ONE (20:00)
--- NOTE | 2018-12-18 20:28 | PDOC ---
History of Present Illness - General Chief Complaint: Injury Stated Complaint: FALL Time Seen by Provider: 12/18/18 19:39 History Source: Patient, Family (Son present at bedside.), Old Records Exam Limitations: Dementia - History of Present Illness Initial Comments: HPI: 88 y/o female presenting to [facility] ER complaining of left hip pain and difficulty ambulating after falling around 17:30 this evening. The pt fell to her left side from seated position on a radiator cover at home. Reports striking her head but denies headache, neck pain, or LOC. Was not able to stand afterwards, but crawled into a seated position. The fall was witnessed but her son arrived at her side within approx. 15 min. Pt takes baby ASA daily. No anticoagulants. Social Hx: - Pt lives at home with home health aide (not 24hrs) - Normally ambulates without assistance - "was raking leaves all day today" Medical Hx: - Dementia - HTN - Left sphenoid ridge meningioma Review of Systems: In addition to that documented in the HPI above, the additional ROS was obtained : Constitutional- Denies fevers or chills Head- Denies vision changes ENMT- Denies sore throat CV- Denies chest pain Resp- Denies SOB GI- Denies vomiting or diarrhea - Denies painful urination MSK- Per HPI Skin- Denies new rashes Neuro- Denies new numbness or tingling or weakness Endocrine- Denies polyuria Heme- Denies bleeding or bruising Physical Examination: Constitutional- Well-developed, well-nourished elderly female in no acute distress but mild obvious discomfort. Found semi-fowlers on hospital bed. Head: Normocephalic. No obvious external signs of trauma. No periorbital ecchymosis or Battles sign. Eyes: Pupils 4mm and PERRL. EOMI. Sclerae white. Conjunctiva moist and not injected. Ears: Hearing grossly intact. No hemotympanum. Nose: No nasal discharge. Throat: Oral cavity and pharynx normal. No inflammation, swelling, exudate, or lesions. Teeth and gingiva in good general condition. Neck: Supple, trachea is midline. Pt able to laterally rotate neck to left and right >45 degrees. No subjective C-spine tenderness or bony deformities. No step off. Cardiovascular / Chest- Regular rate and regular rhythm. No murmur, rubs, clicks , or gallops. Peripheral pulses- radial pulses full. Respiratory- Breathing unlabored. Equal chest rise and fall. Clear to auscultation bilaterally. No stridor, no wheezing, no rhonchi. Gastrointestinal- abdomen is soft, non-tender, non-distended. Neuro- Alert and oriented x4. Moving all four extremities spontaneously. MSK- Left leg externally rotated but not lengthened compared to right. Point tenderness to lateral aspect of left hip. Pt unable to left leg off bed secondary to pain. Skin- Lowry, warm, and dry. Psych- Affect- appropriate. Mood- normal. Speech was non-labored, non- pressured. MDM: *Reviewed vital signs, nursing notes, and prior visit documentation (if available). 88 y/o female presenting with left hip pain after mechanical fall. Afebrile. Vitals unremarkable for hypotension or tachycardia. Physical exam as described above. CT scan remarkable for left IT femoral fracture. 18 Dec 2018 22:10 PM In person discussion with Dr. Caceres. Verbally appraised of the pts HPI, ED course, and current plan of management. Will evaluate the pt. Anticipates surgical intervention. 18 Dec 2018 22:10 PM Telephone discussion with resident Dr. Terrell. Verbally appraised of the pts HPI, ED course, and current plan of management. Will admit pt to med/surg for attending Dr. Reynolds. Rodo Pradhan M.D., PGY2 Emergency Medicine Resident Past History - Past Medical History Allergies/Adverse Reactions: Allergies Allergy/AdvReac Type Severity Reaction Status Date / Time amoxicillin [Amoxicillin] Allergy Rash Verified 12/18/18 19:01 bacitracin Allergy Verified 12/18/18 19:01 codeine [Codeine] Allergy Rash Verified 12/18/18 19:01 lorazepam [From Ativan] Allergy Verified 12/18/18 19:01 Penicillins Allergy Rash Verified 12/18/18 19:01 sertraline HCl [From Zoloft] Allergy Verified 12/18/18 19:01 Sulfa (Sulfonamide Allergy Verified 12/18/18 19:01 Antibiotics) sulfamethoxazole Allergy Verified 12/18/18 19:01 [From Bactrim] trimethoprim [From Bactrim] Allergy Verified 12/18/18 19:01 Home Medications: Ambulatory Orders Aspirin Chewable [Ever Children's Aspirin] 81 mg PO DAILY #0 tab.chew 03/20/11 Amlodipine Besylate [Norvasc -] 5 mg PO DAILY 07/11/15 Rivastigmine Tartrate [Exelon] 3 mg PO BID@0800,1730 07/05/16 Bupropion HCl [Wellbutrin Xl] 300 mg PO HS 05/20/17 COPD: No Dementia: Yes HTN: Yes Hypercholesterolemia: Yes - Psycho Social/Smoking Cessation Hx Smoking Status: No Smoking History: Never smoked Have you smoked in the past 12 months: No Number of Cigarettes Smoked Daily: 0 Cigars Per Day: 0 Information on smoking cessation initiated: No Hx Alcohol Use: No Drug/Substance Use Hx: No Substance Use Type: None Hx Substance Use Treatment: No *Physical Exam - Vital Signs Last Vital Signs Temp Pulse Resp BP Pulse Ox 70 18 175/85 H 94 L 12/18/18 19:01 12/18/18 19:01 12/18/18 19:01 12/18/18 19:01 ED Treatment Course - LABORATORY CBC & Chemistry Diagram: 12/18/18 20:48 12/18/18 20:48 - RADIOLOGY Radiology Studies Ordered: Category Date Time Status HEAD CT WITHOUT CONTRAST [CT] Stat CT Scan 12/18/18 19:[address] WITHOUT CONTRAST [CT] Stat CT Scan 12/18/18 19:58 Ordered CHEST X-RAY PORTABLE* [RAD] Stat Radiology 12/18/18 20:00 Ordered Discharge - Discharge Information Problems reviewed: Yes Clinical Impression/Diagnosis: Fracture of hip, left, closed Condition: Stable - Admission Yes - Follow up/Referral Referrals: Russell Mckinney [Primary Care Provider] - - Patient Discharge Instructions - Post Discharge Activity
[2018-12-18] MEDS ORDERED: ACETAMINOPHEN 325 MG TABLET (FP) ONE (20:38)
[2018-12-18 20:55] LABS: BASO % 0.6 % (0-2.0); EOS % 0.6 % (0-4.5); HEMATOCRIT 41.2 % (32.4-45.2); HEMOGLOBIN 13.9 GM/dL (10.7-15.3); LYMPH % 9.5 % (8-40); MCH 31.5 pg (25.7-33.7); MCHC 33.7 g/dl (32.0-36.0); MEAN CELL VOLUME 93.5 fl (80-96); MEAN PLT VOLUME 9.3 fl (7.5-11.1); MONO % 4.5 % (3.8-10.2); NEUT % 84.8 % (42.8-82.8); PLATELET COUNT 257 K/MM3 (134-434); RDW 12.8 % (11.6-15.6); WHITE BLOOD COUNT 14.6 K/mm3 (4.0-10.0)
[2018-12-18 21:10] LABS: INR 1.05 (0.83-1.09); PROTHROMBIN TIME (PATIENT) 12.4 SEC (9.7-13.0)
[2018-12-18 21:12] LABS: ACTIVATED PTT 31.5 SECONDS (25.2-36.5)
[2018-12-18 21:24] LABS: ALBUMIN 3.7 g/dl (3.4-5.0); BILIRUBIN,TOTAL 0.4 mg/dL (0.2-1); CALCIUM 9.3 mg/dL (8.5-10.1); CREATININE 0.6 mg/dL (0.55-1.3); POTASSIUM 3.7 mmol/L (3.5-5.1); TOT PROT 7.1 g/dl (6.4-8.2)
[2018-12-18] MEDS ORDERED: morphine CARPU-JECT 4 MG/1 ML DISP.SYRIN IVPUSH ONE (22:02)
--- NOTE | 2018-12-18 22:09 | PN ---
Teaching Attending Note Name of Resident: Jonelle Reilly ATTENDING PHYSICIAN STATEMENT I saw and evaluated the patient. I reviewed the resident's note and discussed the case with the resident. I agree with the resident's findings and plan as documented. SUBJECTIVE: Patient is an 88 year old woman with PMH of HTN, HLD, Anxiety, Dementia, Left sphenoid ridge meningioma and Multiple drug allergies including penicillin presenting to the ER complaining of left hip pain and difficulty ambulating after falling around 17:30 this evening. Patient fell to her left side from seated position on a radiator cover at home. Reports striking her head but denies headache, neck pain, or LOC. Was not able to stand afterwards, but crawled into a seated position. The fall was witnessed but her son arrived at her side within approximately 15 minutes. Pt takes baby ASA daily. Not on anticoagulants. Lives at home with home health aide and normally ambulates without assistance - "was raking leaves all day today". Denies alcohol, tobacco or illicit drug use. No fever, chills, photophobia, SOB, vomiting, chest pain, dysuria, frequency or urgency. OBJECTIVE: Alert Vital Signs Period Temp Pulse Resp BP Sys/Rodriguez Pulse Ox Last 24 Hr 70 18 175/85 94 HEENT: No Jaundice, eye redness or discharge, PERRLA, EOMI. Normocephalic, atraumatic. External ears are normal and hearing is grossly intact. No nasal discharge. Neck: Supple, nontender. No palpable adenopathy or thyromegaly. No JVD Chest: Good effort. Clear to auscultation and percussion. Heart: Regular. No S3, rub or murmur Abdomen: Not distended, soft, nontender and no HSM. No rebound or guarding. Normal bowel sounds. Ext: Peripheral pulses intact. No leg edema. Has left hip external rotation and LLE shortening; tender left hip and limited ROM. Skin: Warm and dry. No petechiae, rash or ecchymosis. Neuro: Alert. Oriented x3. CN 2-12 grossly intact. Sensation grossly intact in all four extremities and DTR are symmetric. Psych: Appropriate mood and affect. Good insight. Home Medications Medication Instructions Recorded Aspirin Chewable [Ever Children's 81 mg PO DAILY #0 tab.chew 03/20/11 Aspirin] Amlodipine Besylate [Norvasc -] 5 mg PO DAILY 07/11/15 Rivastigmine Tartrate [Exelon] 3 mg PO BID@0800,1730 07/05/16 Bupropion HCl [Wellbutrin Xl] 300 mg PO HS 05/20/17 Abnormal Lab Results 12/18/18 12/18/18 20:48 20:48 WBC 14.6 H Absolute Neuts (auto) 12.4 H Neutrophils % 84.8 H BUN 20.0 H ASSESSMENT AND PLAN: 1. Fall and left femoral neck fracture - No obvious precipitating factor for the presumed "mechanical fall". Leukocytosis is unexplained - may be due to stess. Urinalysis pending. Will repeat CBC. CT scan shows displaced left femoral neck fracture. No acute abnormality on noncontrast head CT. EKG shows NSR with LAE, LVH and no significant ST-T wave changes. CXR shows cardiomegaly with increased interstitial markings and obscured left costophrenic angle. Patient has been evaluated by Ortho in the ER and surgery is planned for tomorrow. Will keep her NPO, use tylenol for pain control and give 1/2 NS IVF at 40 ml/minute. Do neurochecks, and implement fall precautions. Will continue comprehensive care for all of patients comorbid conditions. 2. Hypertension - Restart suitable outpatient antihypertensive drugs when clinically appropriate. 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 Nonpharmacologic measures to control hypertension like weight loss , salt restriction and exercise discussed. Importance of adherence to treatment regimen and attainment of normotension emphasized. 3. DVT prophylaxis - SCD for now and give Lovenox after surgery 4. Advance directives - Full code
--- NOTE | 2018-12-18 22:17 | CONSULT ---
Consult - text type - Consultation Consultation Note: ORTHOPEDIC SURGERY CONSULTATION NOTE Department of Orthopedic Surgery HISTORY OF PRESENT ILLNESS Ms. Mark is an 88 year old female with a history of dementia, HTN, Left sphenoid ridge meningioma, who presents to [facility] ER with left hip pain. The orthopedic service was consulted for a displaced left femoral neck fracture. The injury occurred after a mechanical fall at home. She was sitting on a radiator looking out the window and slipped off of it onto her left side. The patient notes pain with movement of her left hip. Denies any other injuries. Denies numbness, tingling or other constitutional complaints. The lives at home alone and has aides come to her home daily. Denies tobacco use, drug use, alcohol abuse. The patient does not use assistive devices at baseline, and was able to ambulate before her injury without pain. She was gardening outdoors and cleaning her yard just before her injury occurred. FAMILY HISTORY non-contributory REVIEW OF SYMPTOMS A twelve-point review of systems was performed and was negative except as noted in HPI. PHYSICAL EXAM Constitutional: Alert, slightly confused secondary to dementia. Appears well- developed and well-nourished. Right Upper Extremity: Skin warm, dry, and intact; no lesions, rashes or ulcers noted. Muscle mass equal and symmetric to contralateral side. No atrophy noted. No masses or effusions noted. No tenderness to palpation all joints; nontender throughout rest of extremity. Full passive and active ROM, free from pain. Joints stable with no pathologic laxity. M/R/U/MSK/AX motor intact; SILT distally; 2+ radial pulses; Cap refill brisk. Tone and reflexes normal. Left Upper Extremity: Skin warm, dry, and intact; no lesions, rashes or ulcers noted. Muscle mass equal and symmetric to contralateral side. No atrophy noted. No masses or effusions noted. No tenderness to palpation all joints; nontender throughout rest of extremity. Full passive and active ROM, free from pain. Joints stable with no pathologic laxity. M/R/U/MSK/AX motor intact; SILT distally; 2+ radial pulses; Cap refill brisk. Tone and reflexes normal. Right Lower Extremity: Skin warm, dry, and intact; no lesions, rashes or ulcers noted. Muscle mass equal and symmetric to contralateral side. No atrophy noted. No masses or effusions noted. No tenderness to palpation all joints; nontender throughout rest of extremity. No cords or calf tenderness No significant calf/ankle edema. Full passive and active ROM, free from pain. Joints stable with no pathologic laxity. EHL/TA/GS motor intact; SILT distally; 2+ DP pulses; Cap refill brisk. Tone and reflexes normal. Able to SLR; Negative log roll test. Left Lower Extremity: Skin warm, dry, and intact; no lesions, rashes or ulcers noted. Muscle mass equal and symmetric to contralateral side. No atrophy noted. No masses or effusions noted. Tender to palpation at the greater trochanter; nontender throughout rest of extremity. No cords or calf tenderness No significant calf/ankle edema. Full passive and active ROM of the foot and toes, free from pain. LROM of hip secondary to pain. Joints stable with no pathologic laxity. EHL/TA/GS motor intact; SILT distally; 2+ DP pulses; Cap refill brisk. Tone and reflexes normal. Unable to SLR; Positive log roll test. 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 HTN Psych Depression,Other Past Surgical History Past Surgical History Hysterectomy Social History Smoking history Never smoked Aproximately how many 0 cigarettes per day Hx Alcohol Use No ADL Support Services History of Recent Travel No Allergies Allergy/AdvReac Type Severity Reaction Status Date / Time amoxicillin [Amoxicillin] Allergy Rash Verified 12/18/18 19:01 bacitracin Allergy Verified 12/18/18 19:01 codeine [Codeine] Allergy Rash Verified 12/18/18 19:01 lorazepam [From Ativan] Allergy Verified 12/18/18 19:01 Penicillins Allergy Rash Verified 12/18/18 19:01 sertraline HCl [From Zoloft] Allergy Verified 12/18/18 19:01 Sulfa (Sulfonamide Allergy Verified 12/18/18 19:01 Antibiotics) sulfamethoxazole Allergy Verified 12/18/18 19:01 [From Bactrim] trimethoprim [From Bactrim] Allergy Verified 12/18/18 19:01 Vital Signs (last) Temp Pulse Resp BP Pulse Ox 70 18 175/85 H 94 L 12/18/18 19:01 12/18/18 19:01 12/18/18 19:01 12/18/18 19:01 Intake and Output 12/16/18 12/17/18 12/18/18 23:59 23:59 23:59 Other: Weight 140 lb Height 5 ft 7 in Body Mass Index (BMI) 21.9 Weight Measurement Method Est/Stated by Patient Laboratory 12/18/18 20:48 12/18/18 20:48 PT with INR 12.40 SEC (9.7-13.0) 12/18/18 20:48 PTT (Actin FS) 31.5 SECONDS (25.2-36.5) 12/18/18 20:48 IMAGING I personally reviewed all radiographs, CT, and other imaging. They demonstrate a displaced femoral neck fracture. ASSESSMENT AND PLAN Ms. Mark is a 88 year old female presenting status post mechanical fall at home with a left sided displaced femoral fracture. We have reviewed the imaging and clinical findings in detail, as well as their potential implications. This is an operative fracture. Plan for left partial hip replacement tomorrow 12/19/18 Admit NPO past midnight except for medications - Hold Anticoagulation medications past midnight - Minimize narcotic use NWB LLE CBC/BMP/Coags Type and Screen/2 units PRBC on hold IV Fluids when NPO as per medical team EKG CXR UA Need medical clearance note for surgery. All questions were answered. I discussed the diagnosis, risks and benefits of the procedure at length with the patient's son at bedside. Thank you for involving our team in the care of this patient. Please call us at [phone] with questions
[2018-12-18] MEDS ORDERED: morphine SULFATE 4 MG/ML VIAL ONE (22:38)
[2018-12-18] MEDS ORDERED: SODIUM CHLORIDE 0.45% 1,000 ML IV SCH (23:45)
[2018-12-18] MEDS ORDERED: ACETAMINOPHEN 325 MG TABLET (FP) PO PRN (23:46)
[2018-12-19 00:42] VITALS: BMI 21.6
--- NOTE | 2018-12-19 07:18 | HP ---
CHIEF COMPLAINT: left hip pain PCP: unknown HISTORY OF PRESENT ILLNESS: 88 y/o f, w/ pmh of dementia, htn, left sphenoid meningioma, presents to the ED complaining of left hip pain and difficulty ambulating s/p unwitnessed fall. As per pt's son, patient had fallen from sitting position to the floor of her bedroom in an attempt to get on her bed. Pt crawled her way to the phone and contacted her neighbor who then called her son. When the son arrived, pt was found on the floor attempting to get up. Pt states she did not LOC or hit her head. As per son and pt, she has no hx of falls, or disabilities of any sort. As per son, pt is a very active and mobile women. Aside for memory loss, pt is very healthy, as per son. Admits to left hip pain. Denies f/c/n/v/d/ sob, chest pain, numbness or tingling. ER course was notable for: (1)No acute abnormality on noncontrast head CT (2)EKG shows NSR with LAE, LVH and no significant ST-T wave changes. (3)CXR shows cardiomegaly with increased interstitial markings and obscured left costophrenic angle Recent Travel: denies PAST MEDICAL HISTORY: Dementia HTN Left sphenoid ridge meningioma PAST SURGICAL HISTORY: denies Social History: Pt lives at home with home health aide (not 24hrs) Normally ambulates without assistance - "was raking leaves all day today" Smoking: denies Alcohol: denies Drugs: denies Allergies amoxicillin [Amoxicillin] Allergy (Verified 12/18/18 19:01) Rash bacitracin Allergy (Verified 12/18/18 19:01) codeine [Codeine] Allergy (Verified 12/18/18 19:01) Rash lorazepam [From Ativan] Allergy (Verified 12/18/18 19:) Penicillins Allergy (Verified 12/18/18 19:01) Rash sertraline HCl [From Zoloft] Allergy (Verified 12/18/18 19:01) Sulfa (Sulfonamide Antibiotics) Allergy (Verified 12/18/18 19:01) sulfamethoxazole [From Bactrim] Allergy (Verified 12/18/18 19:01) trimethoprim [From Bactrim] Allergy (Verified 12/18/18 19:01) HOME MEDICATIONS: Home Medications Medication Instructions Recorded Aspirin Chewable [Ever Children's 81 mg PO DAILY #0 tab.chew 03/20/11 Aspirin] Amlodipine Besylate [Norvasc -] 5 mg PO DAILY 07/11/15 Rivastigmine Tartrate [Exelon] 3 mg PO BID@0800,1730 07/05/16 Bupropion HCl [Wellbutrin Xl] 300 mg PO HS 05/20/17 REVIEW OF SYSTEMS CONSTITUTIONAL: Absent: fever, chills, diaphoresis, HEENT: Absent: visual changes CARDIOVASCULAR: Absent: chest pain, syncope, palpitations RESPIRATORY: Absent: cough, shortness of breath, dyspnea with exertion, GASTROINTESTINAL: Absent: abdominal pain, abdominal distension, nausea, vomiting, diarrhea GENITOURINARY: Absent: dysuria, frequency, urgency MUSCULOSKELETAL: Absent: left hip pain NEUROLOGIC: Absent: headache, focal weakness or paresthesias, dizziness, PHYSICAL EXAMINATION Vital Signs - 24 hr 12/18/18 12/18/18 12/19/18 19:01 23:05 00:25 Temperature 98.4 F Pulse Rate 70 97 H Pulse Rate [ 89 Left] Respiratory 18 20 18 Rate Blood Pressure 175/85 H 145/79 Blood Pressure 150/81 [Left Arm] O2 Sat by Pulse 94 L 95 95 Oximetry (%) GENERAL: Awake, alert, and not fully oriented, in no acute distress. EYES: Pupils equal, round and reactive to light, extraocular movements intact, EARS, NOSE, THROAT: Moist mucous membranes. NECK: Normal range of motion, supple without lymphadenopathy LUNGS: Breath sounds equal, clear to auscultation bilaterally. No wheezes, and no crackles. HEART: Regular rate and rhythm, normal S1 and S2 without murmur, rub or gallop. ABDOMEN: Soft, nontender, not distended, normoactive bowel sounds, no guarding, no rebound, no masses. MUSCULOSKELETAL: Left hip pain. Left hip externally rotated and immobilized. Normal range of motion at all joints. No bony deformities or tenderness. No CVA tenderness. Tender to palpation at the greater trochanter; nontender throughout rest of extremity. No cords or calf tenderness UPPER EXTREMITIES: 2+ pulses, warm, well-perfused. LOWER EXTREMITIES: 2+ pulses, warm, well-perfused. . NEUROLOGICAL: Cranial nerves II-XII intact. Strengthen and sensation intact on right UE, LE, left UE. PSYCHIATRIC: Cooperative. Good eye contact. Appropriate mood and affect. SKIN: Warm, dry, Laboratory Results - last 24 hr 12/18/18 12/18/18 12/18/18 20:48 20:48 20:48 WBC 14.6 H RBC 4.40 Hgb 13.9 Hct 41.2 MCV 93.5 MCH 31.5 MCHC 33.7 RDW 12.8 Plt Count 257 MPV 9.3 Absolute Neuts (auto) 12.4 H Neutrophils % 84.8 H Lymphocytes % 9.5 D Monocytes % 4.5 Eosinophils % 0.6 Basophils % 0.6 Nucleated RBC % 0 PT with INR 12.40 INR 1.05 PTT (Actin FS) 31.5 Sodium 137 Potassium 3.7 Chloride 104 Carbon Dioxide 23 Anion Gap 10 BUN 20.0 H Creatinine 0.6 Est GFR (CKD-EPI)AfAm 93.66 Est GFR (CKD-EPI)NonAf 80.81 Random Glucose 95 Calcium 9.3 Total Bilirubin 0.4 AST 21 ALT 21 Alkaline Phosphatase 93 Total Protein 7.1 Albumin 3.7 ASSESSMENT/PLAN: 88 y/o f, presents to the ED complaining of left hip pain and difficulty ambulating s/p unwitnessed fall. #Displaced Femoral neck fracture 2/2 to mechanical fall of unknown origin Discussed with Dr. Garcia- plan is for surgery at 1 pm tomorrow Discussed with son and patient Plan for left partial hip replacement tomorrow 12/19/18 NPO past midnight except for medications PO Hold Anticoagulation medications past midnight Minimize narcotic use and nsaid use NWB LLE CBC/BMP/Coags Type and Screen/2 units PRBC on hold IV Fluids when NPO as per medical team EKG CXR UA Littlejohn placed PT consulted IV tylenol #HTN likely 2/2 to pain monitor BP 1/2NS at 40 #DVT prophylaxis - SCD for now and give Lovenox after surgery #FEN NPO past midnight except for medications PO Dispo: surgery in the am, Please provide Medical clearance, consider rehab for after discharge Visit type - Emergency Visit Emergency Visit: Yes ED Registration Date: 12/18/18 Care time: The patient presented to the Emergency Department on the above date and was hospitalized for further evaluation of their emergent condition. - New Patient This patient is new to me today: Yes Date on this admission: 12/19/18 - Critical Care Critical Care patient: No ATTENDING PHYSICIAN STATEMENT I saw and evaluated the patient. I reviewed the resident's note and discussed the case with the resident. I agree with the resident's findings and plan as documented. SUBJECTIVE: OBJECTIVE: ASSESSMENT AND PLAN:
[2018-12-19 08:19] LABS: INR 1.12 (0.83-1.09); PROTHROMBIN TIME (PATIENT) 13.2 SEC (9.7-13.0)
[2018-12-19 08:22] LABS: ACTIVATED PTT 31.6 SECONDS (25.2-36.5)
[2018-12-19 08:25] LABS: ALBUMIN 3.7 g/dl (3.4-5.0); BILIRUBIN,TOTAL 1.1 mg/dL (0.2-1); BLOOD UREA NITROGEN 11.2 mg/dL (7-18); CALCIUM 8.4 mg/dL (8.5-10.1); CREATININE 0.5 mg/dL (0.55-1.3); POTASSIUM 3.2 mmol/L (3.5-5.1)
--- NOTE | 2018-12-19 09:29 | CON.CARD ---
Consult Consult Specialty:: Cardiology Reason for Consultation:: preop eval - History of Present Illness History of Present Illness: 88 y/o female presenting to [facility] ER complaining of left hip pain and difficulty ambulating after falling around 17:30 this evening. The pt fell to her left side from seated position on a radiator cover at home. Reports striking her head but denies headache, neck pain, or LOC. Was not able to stand afterwards, but crawled into a seated position. The fall was witnessed but her son arrived at her side within approx. 15 min. Pt takes baby ASA daily. No anticoagulants. 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 Cardio/Vascular: Yes: HTN ...: No Psych: Yes: Depression, Other (anxiety, claustrophobia) - Past Surgical History Past Surgical History: Yes: Hysterectomy - Alcohol/Substance Use Hx Alcohol Use: No - Smoking History Smoking history: Never smoked Have you smoked in the past 12 months: No Aproximately how many cigarettes per day: 0 - Social History ADL: Support Services History of Recent Travel: No Home Medications - Allergies Allergies/Adverse Reactions: Allergies Allergy/AdvReac Type Severity Reaction Status Date / Time amoxicillin [Amoxicillin] Allergy Rash Verified 12/18/18 19:01 bacitracin Allergy Verified 12/18/18 19:01 codeine [Codeine] Allergy Rash Verified 12/18/18 19:01 lorazepam [From Ativan] Allergy Verified 12/18/18 19:01 Penicillins Allergy Rash Verified 12/18/18 19:01 sertraline HCl [From Zoloft] Allergy Verified 12/18/18 19:01 Sulfa (Sulfonamide Allergy Verified 12/18/18 19:01 Antibiotics) sulfamethoxazole Allergy Verified 12/18/18 19:01 [From Bactrim] trimethoprim [From Bactrim] Allergy Verified 12/18/18 19:01 - Home Medications Home Medications: Ambulatory Orders Aspirin Chewable [Ever Children's Aspirin] 81 mg PO DAILY #0 tab.chew 03/20/11 Amlodipine Besylate [Norvasc -] 5 mg PO DAILY 07/11/15 Rivastigmine Tartrate [Exelon] 3 mg PO BID@0800,1730 07/05/16 Bupropion HCl [Wellbutrin Xl] 300 mg PO HS 05/20/17 Review of Systems - Review of Systems Constitutional: reports: No Symptoms Eyes: reports: No Symptoms HENT: reports: No Symptoms Neck: reports: No Symptoms Cardiovascular: reports: No Symptoms Respiratory: reports: No Symptoms Gastrointestinal: reports: No Symptoms Genitourinary: reports: No Symptoms Breasts: reports: No Symptoms Reported Musculoskeletal: reports: No Symptoms Integumentary: reports: No Symptoms Neurological: reports: No Symptoms Endocrine: reports: No Symptoms Hematology/Lymphatic: reports: No Symptoms Psychiatric: reports: No Symptoms Vital Signs: Vital Signs Temperature 98.0 F 12/19/18 07:53 Pulse Rate 98 H 12/19/18 07:53 Respiratory Rate 20 12/19/18 07:53 Blood Pressure 140/76 12/19/18 07:53 O2 Sat by Pulse Oximetry (%) 95 12/19/18 00:25 Constitutional: Yes: Well Nourished, No Distress, Calm Eyes: Yes: WNL, Conjunctiva Clear, EOM Intact HENT: Yes: WNL, Atraumatic, Normocephalic Neck: Yes: WNL, Supple, Trachea Midline Respiratory: Yes: WNL, Regular, CTA Bilaterally Gastrointestinal: Yes: WNL, Normal Bowel Sounds Renal/: Yes: WNL Cardiovascular: Yes: WNL, Regular Rate and Rhythm Musculoskeletal: Yes: WNL Extremities: Yes: External Rotation Integumentary: Yes: WNL Neurological: Yes: WNL, Alert, Oriented ...Motor Strength: WNL Psychiatric: Yes: WNL, Alert, Oriented - Other Data Labs, Other Data: CBC, BMP 12/18/18 20:48 12/19/18 06:30 INR, PTT INR 1.12 (0.83-1.09) H 12/19/18 06:30 Imaging - Results Chest X-ray: Image Reviewed (no /i/e) Assessment/Plan Left femur fx s/p mechanical fall no syncope echo april 2017 nl ef moderate AR, TR, nl rvsp htn, dementia ekg old septal mi unchanged, new lateral st changes ? LVH new from 2018 as per son no angina, chf, cad or recent mi Patient has no absoluyte contraindications for OR . She is moderate to high risks for general or spinal anasthesia for orthopedic femur surgery on the basis off old age, dementia and new ekg changes. ECHO is pending but it is unclear at the moment whether it could be done prior to surgery. Son understands the risks of OK/ and insists on surgery since outcome without surgical intervention is not good. d/w Orthopedic Surgeon and anasthesiologist.
--- NOTE | 2018-12-19 09:34 | PN ---
Progress Note (short form) - Note Progress Note: ORTHOPEDIC SURGERY PROGRESS NOTE Department of Orthopedic Surgery SUBJECTIVE No acute events overnight. No complaints currently. Resting comfortably currently. PHYSICAL EXAMINATION General: Alert, slightly confused, no distress. Left Lower Extremity: Skin warm, dry, and intact; no lesions, rashes or ulcers noted. Muscle mass equal and symmetric to contralateral side. No atrophy noted. No masses or effusions noted. Tender to palpation at the greater trochanter; nontender throughout rest of extremity. No cords or calf tenderness No significant calf/ankle edema. Full passive and active ROM of the foot and toes, free from pain. LROM of hip secondary to pain. Joints stable with no pathologic laxity. EHL/TA/GS motor intact; SILT distally; 2+ DP pulses; Cap refill brisk. Tone and reflexes normal. Unable to SLR; Positive log roll test.brisk. DVT Exam: No evidence of DVT seen on physical exam; No cords or calf tenderness ; No significant calf/ankle edema. Intake & Output 12/17/18 12/18/18 12/19/18 23:59 23:59 23:59 Output Total 1999 Balance -1999 Output: Urine 1999 Littlejohn 1999 Other: Voiding Method Indwelling Catheter Weight 140 lb 138 lb 3.2 oz Height 5 ft 7 in 5 ft 7 in Body Mass Index (BMI) 21.9 21.6 Weight Measurement Method Built in [facility] Weight Measurement Method Est/Stated by Patient Active Medications Generic Name Dose Route Start Last Admin Trade Name Freq PRN Reason Stop Dose Admin Acetaminophen 650 mg 12/18/18 23:46 12/19/18 02:14 Tylenol - PO 650 mg Q4H PRN Administration PAIN Sodium Chloride 1,000 mls @ 42 mls/hr 12/18/18 23:45 12/19/18 03:35 1/2 Normal Saline IV 42 mls/hr ASDIR EDGAR Administration Vital Signs (last) Temp Pulse Resp BP Pulse Ox 98.0 F 98 H 20 140/76 95 12/19/18 07:53 12/19/18 07:53 12/19/18 07:53 12/19/18 07:53 12/19/18 00:25 Laboratory (coagulation) PT with INR 13.20 SEC (9.7-13.0) H 12/19/18 06:30 Laboratory 12/18/18 20:48 12/19/18 06:30 ASSESSMENT AND PLAN Ms. Mark is a 88 year old female presenting status post mechanical fall at home with a left sided displaced femoral fracture. We have reviewed the imaging and clinical findings in detail, as well as their potential implications. This is an operative fracture. Plan for left partial hip replacement today 12/19/18 NPO except for medications - Hold Anticoagulation medications - Minimize narcotic use - F/U AM Labs (H/H) NWB LLE Type and Screen / 2 units PRBC on hold IV Fluids when NPO as per medical team EKG CXR Need medical / cardiology clearance note for surgery. All questions were answered. I discussed the diagnosis, risks and benefits of the procedure at length with the patient's son at bedside. Thank you for involving our team in the care of this patient. Please call us at [phone] with questions
--- NOTE | 2018-12-19 10:48 | PN ---
Physical Exam: SUBJECTIVE: Patient seen and examined pt has no symptoms and not c/o of sob or cp OBJECTIVE: Vital Signs Period Temp Pulse Resp BP Sys/Rodriguez Pulse Ox Last 24 Hr 98.0 F-98.4 F 70-98 18-20 140-175/76-85 94-95 GENERAL: The patient is awake, alert, HEAD: Normal with no signs of trauma. EYES: PERRL, extraocular movements intact, sclera anicteric, conjunctiva clear. No ptosis. ENT: Ears normal, nares patent, oropharynx clear without exudates, moist mucous membranes. NECK: Trachea midline, full range of motion, supple. LUNGS: Breath sounds equal, clear to auscultation bilaterally, no wheezes, no crackles, no accessory muscle use. HEART: Regular rate and rhythm, S1, S2 without murmur, rub or gallop. ABDOMEN: Soft, nontender, nondistended, normoactive bowel sounds, no guarding, no rebound, no hepatosplenomegaly, no masses. EXTREMITIES: 2+ pulses, warm, well-perfused, no edema. NEUROLOGICAL: alert and awake SKIN: Warm, dry, normal turgor, no rashes or lesions noted Laboratory Results - last 24 hr 12/18/18 12/18/18 12/18/18 20:48 20:48 20:48 WBC 14.6 H RBC 4.40 Hgb 13.9 Hct 41.2 MCV 93.5 MCH 31.5 MCHC 33.7 RDW 12.8 Plt Count 257 MPV 9.3 Absolute Neuts (auto) 12.4 H Neutrophils % 84.8 H Lymphocytes % 9.5 D Monocytes % 4.5 Eosinophils % 0.6 Basophils % 0.6 Nucleated RBC % 0 PT with INR 12.40 INR 1.05 PTT (Actin FS) 31.5 Sodium 137 Potassium 3.7 Chloride 104 Carbon Dioxide 23 Anion Gap 10 BUN 20.0 H Creatinine 0.6 Est GFR (CKD-EPI)AfAm 93.66 Est GFR (CKD-EPI)NonAf 80.81 Random Glucose 95 Calcium 9.3 Total Bilirubin 0.4 AST 21 ALT 21 Alkaline Phosphatase 93 Total Protein 7.1 Albumin 3.7 12/19/18 12/19/18 06:30 06:30 WBC RBC Hgb Hct MCV MCH MCHC RDW Plt Count MPV Absolute Neuts (auto) Neutrophils % Lymphocytes % Monocytes % Eosinophils % Basophils % Nucleated RBC % PT with INR 13.20 H INR 1.12 H PTT (Actin FS) 31.6 Sodium 137 Potassium 3.2 L Chloride 103 Carbon Dioxide 24 Anion Gap 10 BUN 11.2 Creatinine 0.5 L Est GFR (CKD-EPI)AfAm 99.45 Est GFR (CKD-EPI)NonAf 85.81 Random Glucose 119 H Calcium 8.4 L Total Bilirubin 1.1 H AST 19 ALT 20 Alkaline Phosphatase 94 Total Protein 7.0 Albumin 3.7 Active Medications Generic Name Dose Route Start Last Admin Trade Name Freq PRN Reason Stop Dose Admin Acetaminophen 650 mg 12/18/18 23:46 12/19/18 02:14 Tylenol - PO 650 mg Q4H PRN Administration PAIN Sodium Chloride 1,000 mls @ 42 mls/hr 12/18/18 23:45 12/19/18 03:35 1/2 Normal Saline IV 42 mls/hr ASDIR EDGAR Administration ASSESSMENT/PLAN: 88 y/o f, presents to the ED complaining of left hip pain and difficulty ambulating s/p unwitnessed fall. #Displaced Femoral neck fracture 2/2 to mechanical fall of unknown origin PLAN She is seen by cardio as I requested today . SHE IS MODERATE TO HIGH RISK FOR SUGRER BUT SHE HAS NO OTHER OPTION OTHER THAN TO HAVE SURGERY OR ELSE, Her ekg is lvh and non specific changes blood work is ok and chest xrays are no pneumonia. Visit type - Emergency Visit Emergency Visit: Yes ED Registration Date: 12/18/18 Care time: The patient presented to the Emergency Department on the above date and was hospitalized for further evaluation of their emergent condition. - New Patient This patient is new to me today: Yes Date on this admission: 12/19/18 - Critical Care Critical Care patient: No - Discharge Referral Referred to [facility] Med P.C.: No
[2018-12-19 11:52] LABS: BASO % 0.3 % (0-2.0); EOS % 0.2 % (0-4.5); HEMATOCRIT 41.6 % (32.4-45.2); HEMOGLOBIN 13.7 GM/dL (10.7-15.3); LYMPH % 4.9 % (8-40); MCH 31.4 pg (25.7-33.7); MCHC 32.9 g/dl (32.0-36.0); MEAN CELL VOLUME 95.3 fl (80-96); NEUT % 89.6 % (42.8-82.8); PLATELET COUNT 250 K/MM3 (134-434); RBC 4.36 M/mm3 (3.60-5.2); RDW 13.1 % (11.6-15.6); WHITE BLOOD COUNT 13.9 K/mm3 (4.0-10.0)
[2018-12-19] MEDS ORDERED: BUPIVACAINE HCL/PF 0.5% (5 MG/ML) 30 ML VIAL IJ ONE ×2 (12:51→13:45)
[2018-12-19] MEDS ORDERED: PHENYLEPHRINE HCL 10 MG/1 ML SINGLE DOSE VIAL ONE (12:58)
[2018-12-19] MEDS ORDERED: SUCCINYLCHOLINE CHLORIDE 200 MG/10 ML SYRINGE ONE (12:59)
[2018-12-19] MEDS ORDERED: EPHEDRINE SULFATE/0.9% NACL/PF 50 MG/10 ML SYRINGE NR ONE (12:59)
[2018-12-19] MEDS ORDERED: PROPOFOL 20 ML ONE ×4 (12:59→14:16)
[2018-12-19] MEDS ORDERED: LIDOCAINE HCL 4% TOPICAL SOLN (50 ML/BOTTLE) ONE (13:00)
[2018-12-19 14:01] LABS: EPI CELLS 0.7 /HPF (0-5/HPF); HYALINE CASTS 2 /lpf (0-8); PH,URINE 8.5 (5.0-8.0); URINE APPEARANCE CLEAR; URINE BACTERIA 2.2 /hpf (NEGATIVE); URINE BILIRUBIN NEGATIVE (NEGATIVE); URINE COLOR YELLOW; URINE GLUCOSE (UA) NEGATIVE (NEGATIVE); URINE KETONE TRACE (NEGATIVE); URINE LEUK ESTERASE NEGATIVE (NEGATIVE); URINE NITRITE NEGATIVE (NEGATIVE); URINE PROTEIN NEGATIVE (NEGATIVE); URINE RBC 21 /hpf (0-4); URINE UROBILINOGEN 0.2 mg/dL (0.2-1.0); URINE WBC 4 /hpf (0-5)
[2018-12-19] MEDS ORDERED: VANCOMYCIN 1,000 MG VIAL (RESTRICTED TO ID ONLY) IVPB ONE (14:16)
[2018-12-19] MEDS ORDERED: VANCOMYCIN 1,000 MG VIAL (RESTRICTED TO ID ONLY) ONE (14:16)
--- NOTE | 2018-12-19 14:48 | EKG ---
Test Reason : Blood Pressure : / mmHG Vent. Rate : 085 BPM Atrial Rate : 085 BPM P-R Int : 194 ms QRS Dur : 080 ms QT Int : 390 ms P-R-T Axes : 083 017 028 degrees QTc Int : 464 ms NORMAL SINUS RHYTHM POSSIBLE LEFT ATRIAL ENLARGEMENT LEFT VENTRICULAR HYPERTROPHY CANNOT RULE OUT SEPTAL INFARCT (CITED ON OR BEFORE 20-MAY-2017) ABNORMAL ECG WHEN COMPARED WITH ECG OF 20-MAY-2017 12:35, CRITERIA FOR INFERIOR INFARCT ARE NO LONGER PRESENT ST NO LONGER DEPRESSED IN INFERIOR LEADS NONSPECIFIC T WAVE ABNORMALITY, IMPROVED IN INFERIOR LEADS Confirmed by MICKI DANIELS, LEON ([id number]) on 12/19/2018 2:47:36 PM Referred By: Confirmed By:LEON SWEET MD
[2018-12-19] MEDS ORDERED: LACTATED RINGERS SOLUTION 1,000 ML IV SCH ×2 (17:00→17:30)
--- NOTE | 2018-12-19 17:30 | OPR ---
Date of Surgery: 12/19/18 Procedure: Left Hip Hemiarthroplasty (48542) Preoperative Diagnoses: 1. Left Femoral Neck Fracture Postoperative Diagnoses: 1. Left Femoral Neck Fracture Surgeon: Canelo Caceres DO Assistants: Jah Harp DO Anesthesia: General Estimated Blood Loss: 150 ml Drains: none Total IV Fluids: per anesthesia record Specimens: Femoral head Implants: [place] [employer] bipolar implant Complications: None Disposition: PACU Condition: Hemodynamically stable Indications: Ms. Mark presented to us with the above noted diagnoses. The patient and her family and daughter/Health Care Proxy (Esperanza) ultimately elected to proceed with surgical intervention after discussion of the risks, benefits, alternatives of surgery. We discussed risks including but not limited to, , MA, bleeding, pain, infection, scarring, fracture, dislocation, damage to neurovascular structures, blood clots, leg length discrepancy, pulmonary embolus, need for additional surgery, incomplete relief of pain, incomplete return of function, and failure of prosthesis. The patient and family expressed understanding and wished to proceed. We also discussed the risks and benefits of a conservative or non-surgical approach. We discussed risks including ongoing pain, , dysfunction, blood clots, pneumonia, decubitus ulcers, skin sores, and inability to ambulate. Ms. Mark underwent preoperative medical and cardiac evaluation, clearance, and optimization prior to surgery. Procedure Details: Ms. Mark was identified in the preoperative area. The left hip was marked as the operative site and consent was completed and confirmed by her health care proxy and daughter, Esperanza. Ms. Mark was later transferred to the operating room and placed in supine position the operating room. Spinal Anesthesia was induced without difficulty by the attending anesthesiologist. She was repositioned into lateral decubitus with all bony prominences appropriately padded and an axillary roll inferior to the axilla. The neck was in neutral alignment. A surgical time-out was performed identifying the correct patient, procedure, and site. Antibiotics were given within 1 hour prior to surgical incision. The left lower extremity was prepped and draped in standard sterile fashion. Left Hip Hemiarthroplasty: We began the procedure with an incision along the proximal aspect of the femur over the greater trochanter extending posteriorly for a total of approximately 10 cm. Sharp dissection was carried through the subcutaneous tissues and self retaining retractors were placed. The IT fascia was identified, and this was incised with a curved gonzalez scissors in the midline with respect to the greater trochanter extending posteriorly into inline with the fibers of the gluteus. Charnley retractors were placed. Hemostasis was achieved. We placed the leg in internal rotation, which brought the external rotators into view. We clearly identified the piriformis and the short external rotators. We placed a blunt cobra underneath the gluteus medius and minimus. We then tagged the piriformis with number 1 Vicryl suture. Under sharp dissection, we released the short external rotators off the bone subperiosteally extending into the neck releasing the piriformis and posteriorly along the neck. We then made a sharp dissection of the hip capsule in one T-shaped sleeve, tagging each end of the T with 0-vycril sutures. This dissection was carried posteriorly to the level of the acetabular labrum. We encountered the fracture hematoma and this was evacuated. The fracture was appreciated along the femoral neck approximately 1.5 cm above the lesser trochanter. We placed a corkscrew and sweetheart clamp into the femoral head, used a gonzalez scissors to release any attachments to the acetabulum, and extracted it gently out of the acetabulum. The acetabulum was intact with no loose bodies. We then placed another retractor under the lesser trochanter and performed our neck cut approximately 1 cm above the lesser trochanter using a femoral neck cut guide. We then used the box-cutter to create an entry point into the femoral canal. We then entered into the lateral aspect of the femoral canal and the canal-finder was used; it easily fell into the femoral canal. We sequentially broached and found a size 7 had appropriate fit, which also had reasonable rotational stability and was flush with medial aspect of the femoral neck cut. We then trailed with a 26 mm +4 head with 45 size bipolar cup. We measured the head to be 45 mm found a good fit. This was assembled onto a high offset neck, we reduced this and there was no significant shuck. The leg lengths were appropriate. It was not unstable anteriorly or posteriorly. We were able to achieve internal rotation of 90 degrees as well as some adduction without any significant instability posteriorly. We were satisfied with this. We then extracted the femoral head gently and we removed the neck and head as well broach and prepared for implantation of our real component. The tissue tension was appropriate. We selected the real component and these were assembled onto the neck without difficulty and we again reduced the head into the acetabulum. We were satisfied with our stability and range of motion which was excellent. We thoroughly irrigated the wound including the joint with copious irrigation and lavage. She tolerated the procedure well. We repaired the capsule and short external rotators to each other. We made drill holes through the greater trochanter and passed the stitches with the needle of the #1 Vicryl and 0-vycril sutures. This achieved excellent reapproximation of the short external rotators and capsule. We thoroughly irrigated the wound and closed the wound in a layered fashion. The wound was closed with 1-vicryl interrupted stitches of the IT fascia, followed by 0-vicryl stitches, followed by 2-0 Vicryl deep interrupted fashion and then closed the superficial space and finally, rach for the skin. The wound was cleaned and dried, and an aquacell dressing was applied. The patient was awoken from anesthesia and transferred to the PACU in stable condition. Attestation for first aid teacher: Jah Harp DO acted as the first aid teacher. There was no qualified resident armoured car escort available to do so. Post-operative Details: I spoke with the family regarding the operation after surgery. Postoperative rehabilitation: Posterior hip precautions; WBAT LLE with assitance PT Daily Antibiotics x 24 hours (Vancomycin) DVT ppx: Lovenox 40mg SQ Daily starting 12/20/18. (teds/scds/ambulation with assist) Dressing change post op day 5 Medical management: Nutrition optimization; decubitus precautions Staple removal on post op day 14 Abduction pillow while in bed. Knee immobilizer while in bed (may remove for physical therapy) Canelo Caceres DO Orthopedic Surgery
[2018-12-19] MEDS: LACTATED RINGERS SOLUTION 1,000 ML IV SCH (17:40)
[2018-12-19 18:24] LABS: BASO % 0.2 % (0-2.0); EOS % 0.2 % (0-4.5); HEMOGLOBIN 11.6 GM/dL (10.7-15.3); LYMPH % 4.7 % (8-40); MCH 31.4 pg (25.7-33.7); MCHC 33.2 g/dl (32.0-36.0); MEAN CELL VOLUME 94.6 fl (80-96); MEAN PLT VOLUME 9.7 fl (7.5-11.1); MONO % 3.9 % (3.8-10.2); PLATELET COUNT 218 K/MM3 (134-434); RDW 12.7 % (11.6-15.6); WHITE BLOOD COUNT 15.8 K/mm3 (4.0-10.0)
[2018-12-19 18:36] LABS: CALCIUM 7.8 mg/dL (8.5-10.1); CREATININE 0.5 mg/dL (0.55-1.3); POTASSIUM 3.5 mmol/L (3.5-5.1)
[2018-12-19] MEDS ORDERED: ONDANSETRON 4 MG/2 ML VIAL ONE (18:48)
--- NOTE | 2018-12-19 19:15 | PN ---
Progress Note (short form) - Note Progress Note: 88F h/o HTN POD#0 Hemiarthroplasty of hip under spinal anesthesia with sedation. Intraop pt. did well without anesthesia related complications. At approx. 1830 PM I received a call from PACU nurse stating Ms. Mark had cofffee ground emesis. VS: 132/49, HR: 79, RR: 12, O2: 100% PE: GEN: NAD, mental status @ baseline CV: RRR Resp: CTAB ABD: NABD, NT/ND CBC: Hb: 11.6 Plan: 88F POD#0 for hemiarthroplasty with possible GIB. Discussed concern/case with Dr. Almodovar (resident physician). Primary team will check serial CBC and start patient on GI ppx.
[2018-12-19] MEDS ORDERED: ONDANSETRON 4 MG/2 ML VIAL IVPUSH PRN (19:17)
[2018-12-19 20:01] LABS: PLATELET ESTIMATE ADEQUATE
[2018-12-19] MEDS: PANTOPRAZOLE SODIUM 40 MG VIAL IVPUSH SCH (20:04)
[2018-12-19] MEDS ORDERED: PANTOPRAZOLE SODIUM 40 MG VIAL IVPUSH SCH (22:00)
[2018-12-20 01:22] LABS: HEMATOCRIT 32.7 % (32.4-45.2); HEMOGLOBIN 10.8 GM/dL (10.7-15.3); MCH 31.3 pg (25.7-33.7); MCHC 33.2 g/dl (32.0-36.0); MEAN CELL VOLUME 94.3 fl (80-96); MEAN PLT VOLUME 9.9 fl (7.5-11.1); PLATELET COUNT 205 K/MM3 (134-434); RBC 3.46 M/mm3 (3.60-5.2); RDW 12.7 % (11.6-15.6); WHITE BLOOD COUNT 14.5 K/mm3 (4.0-10.0)
[2018-12-20] MEDS ORDERED: VANCOMYCIN 1 GRAM (PRE-DOCKED) 1,000 MG/250 ML BAG IVPB ONE ×2 (02:30)
[2018-12-20] MEDS: LACTATED RINGERS SOLUTION 1,000 ML IV SCH (05:26)
[2018-12-20 06:35] LABS: HEMATOCRIT 32.7 % (32.4-45.2); MCH 31.4 pg (25.7-33.7); MCHC 33.5 g/dl (32.0-36.0); MEAN CELL VOLUME 93.8 fl (80-96); MEAN PLT VOLUME 9.4 fl (7.5-11.1); PLATELET COUNT 196 K/MM3 (134-434); RBC 3.49 M/mm3 (3.60-5.2); RDW 12.8 % (11.6-15.6); WHITE BLOOD COUNT 12.2 K/mm3 (4.0-10.0)
[2018-12-20 08:28] LABS: CALCIUM 7.8 mg/dL (8.5-10.1); CREATININE 0.5 mg/dL (0.55-1.3); POTASSIUM 3.3 mmol/L (3.5-5.1)
[2018-12-20] MEDS ORDERED: PT OWN MED DRAWER 7, Y5N ONE (09:43)
[2018-12-20] MEDS ORDERED: MULTIVITAMINS (DAILY MVI) TABLET (FP) PO SCH (10:00)
[2018-12-20] MEDS ORDERED: ENOXAPARIN NA (PORCINE) 30 MG/0.3 ML DISP.SYRIN SQ SCH ×2 (10:00)
--- NOTE | 2018-12-20 10:17 | PN ---
Physical Exam: SUBJECTIVE: Patient seen and examined sp hip surgery and it was uneventful , she is alert and awake. no distress she is hungry at this time OBJECTIVE: Vital Signs Period Temp Pulse Resp BP Sys/Rodriguez Pulse Ox Last 24 Hr 97.8 F-99.2 F 21-98 14-96 108-142/49-99 97-100 GENERAL: The patient is awake, alert, a in no acute distress. HEAD: Normal with no signs of trauma NECK: Trachea midline, full range of motion, supple. LUNGS: Breath sounds equal, clear to auscultation bilaterally, no wheezes, HEART: Regular rate and rhythm, S1, S2 without murmur, rub or gallop. ABDOMEN: Soft, nontender, nondistended, normoactive bowel sounds, no guarding, no rebound, no hepatosplenomegaly, no masses. EXTREMITIES: 2+ pulses, warm, well-perfused, no edema. Laboratory Results - last 24 hr 12/19/18 12/19/18 12/19/18 07:30 11:30 12:30 WBC 13.9 H RBC 4.36 Hgb 13.7 Hct 41.6 MCV 95.3 MCH 31.4 MCHC 32.9 RDW 13.1 Plt Count 250 MPV 10.0 Absolute Neuts (auto) 12.4 H Total Counted Neutrophils % 89.6 H Neutrophils % (Manual) Band Neutrophils % Lymphocytes % 4.9 L D Lymphocytes % (Manual) Monocytes % 5.0 Monocytes % (Manual) Eosinophils % 0.2 Basophils % 0.3 Nucleated RBC % 0 Differential Comment Platelet Estimate Platelet Comment Sodium Potassium Chloride Carbon Dioxide Anion Gap BUN Creatinine Est GFR (CKD-EPI)AfAm Est GFR (CKD-EPI)NonAf Random Glucose Calcium Urine Color Yellow Urine Appearance Clear Urine pH 8.5 H D Ur Specific [place] 1.011 Urine Protein Negative Urine Glucose (UA) Negative Urine Ketones Trace H Urine Blood 1+ H Urine Nitrite Negative Urine Bilirubin Negative Urine Urobilinogen 0.2 Ur Leukocyte Esterase Negative Urine WBC (Auto) 4 Urine RBC (Auto) 21 Urine Casts (Auto) 2 U Epithel Cells (Auto) 0.7 Urine Bacteria (Auto) 2.2 Blood Type O POSITIVE Antibody Screen Negative 12/19/18 12/19/18 12/20/18 18:10 18:10 00:01 WBC 15.8 H 14.5 H RBC 3.70 3.46 L Hgb 11.6 10.8 Hct 35.0 D 32.7 MCV 94.6 94.3 MCH 31.4 31.3 MCHC 33.2 33.2 RDW 12.7 12.7 Plt Count 218 205 MPV 9.7 9.9 Absolute Neuts (auto) 14.4 H Total Counted 100 Neutrophils % 91.0 H Neutrophils % (Manual) 89.0 H Band Neutrophils % 1.0 Lymphocytes % 4.7 L Lymphocytes % (Manual) 5.0 L Monocytes % 3.9 Monocytes % (Manual) 5 Eosinophils % 0.2 Basophils % 0.2 Nucleated RBC % 0 Differential Comment Man diff performed Platelet Estimate Adequate Platelet Comment Slide scanned. Sodium 138 Potassium 3.5 Chloride 108 H Carbon Dioxide 22 Anion Gap 9 BUN 13.0 Creatinine 0.5 L Est GFR (CKD-EPI)AfAm 99.45 Est GFR (CKD-EPI)NonAf 85.81 Random Glucose 121 H Calcium 7.8 L Urine Color Urine Appearance Urine pH Ur Specific [place] Urine Protein Urine Glucose (UA) Urine Ketones Urine Blood Urine Nitrite Urine Bilirubin Urine Urobilinogen Ur Leukocyte Esterase Urine WBC (Auto) Urine RBC (Auto) Urine Casts (Auto) U Epithel Cells (Auto) Urine Bacteria (Auto) Blood Type Antibody Screen 12/20/18 12/20/18 06:10 07:06 WBC 12.2 H RBC 3.49 L Hgb 11.0 Hct 32.7 MCV 93.8 MCH 31.4 MCHC 33.5 RDW 12.8 Plt Count 196 MPV 9.4 Absolute Neuts (auto) Total Counted Neutrophils % Neutrophils % (Manual) Band Neutrophils % Lymphocytes % Lymphocytes % (Manual) Monocytes % Monocytes % (Manual) Eosinophils % Basophils % Nucleated RBC % Differential Comment Platelet Estimate Platelet Comment Sodium 139 Potassium 3.3 L Chloride 106 Carbon Dioxide 23 Anion Gap 9 BUN 14.0 Creatinine 0.5 L Est GFR (CKD-EPI)AfAm 99.45 Est GFR (CKD-EPI)NonAf 85.81 Random Glucose 124 H Calcium 7.8 L Urine Color Urine Appearance Urine pH Ur Specific [place] Urine Protein Urine Glucose (UA) Urine Ketones Urine Blood Urine Nitrite Urine Bilirubin Urine Urobilinogen Ur Leukocyte Esterase Urine WBC (Auto) Urine RBC (Auto) Urine Casts (Auto) U Epithel Cells (Auto) Urine Bacteria (Auto) Blood Type Antibody Screen Active Medications Generic Name Dose Route Start Last Admin Trade Name Freq PRN Reason Stop Dose Admin Acetaminophen 650 mg 12/19/18 17:40 Tylenol - PO Q4H PRN PAIN LEVEL 1-5 Amlodipine Besylate 5 mg 12/21/18 10:00 Norvasc - PO DAILY [facility] Aspirin 81 mg 12/21/18 10:00 Asa - PO DAILY [facility] Enoxaparin Sodium 40 mg 12/20/18 10:00 Lovenox - SQ DAILY [facility] Lactated Ringer's 1,000 mls @ 75 mls/hr 12/19/18 17:40 12/20/18 05:26 Lactated Ringers Solution IV 75 mls/hr ASDIR [facility] Administration Multivitamins/Minerals/Vitamin C 1 tab 12/20/18 10:00 Tab-A-Vit - PO DAILY [facility] Non-Formulary Medication 300 mg 12/20/18 22:00 Bupropion Hcl [Wellbutrin Xl] PO HS [facility] Ondansetron HCl 4 mg 12/19/18 19:17 12/19/18 18:48 Zofran Injection IVPUSH 4 mg Q6H PRN Administration NAUSEA AND/OR VOMITING Pantoprazole Sodium 40 mg 12/19/18 20:00 12/19/18 20:04 Protonix Iv IVPUSH 40 mg BID [facility] Administration Rivastigmine Tartrate 4.5 mg 12/20/18 17:30 Exelon PO BID@0800,1730 [facility] ASSESSMENT/PLAN: All Active Problems Dementia (Acute) restart her meds for dementia Hypertension (Chronic) stable and restart on amlidipine Hip fx s/p surgery start feeding and plan as per ortho pt continue dvt prophylaxis Visit type - Emergency Visit Emergency Visit: Yes ED Registration Date: 12/18/18 Care time: The patient presented to the Emergency Department on the above date and was hospitalized for further evaluation of their emergent condition. - New Patient This patient is new to me today: No - Critical Care Critical Care patient: No - Discharge Referral Referred to [facility] Med P.C.: No
--- NOTE | 2018-12-20 10:44 | PN ---
Progress Note, Physician History of Present Illness: 88 y/o female presenting to [facility] ER complaining of left hip pain and difficulty ambulating after falling around 17:30 this evening. The pt fell to her left side from seated position on a radiator cover at home. Reports striking her head but denies headache, neck pain, or LOC. Was not able to stand afterwards, but crawled into a seated position. The fall was witnessed but her son arrived at her side within approx. 15 min. Pt takes baby ASA daily. No anticoagulants. - Current Medication List Current Medications: Active Medications Acetaminophen (Tylenol -) 650 mg PO Q4H PRN PRN Reason: PAIN LEVEL 1-5 Amlodipine Besylate (Norvasc -) 5 mg PO DAILY [facility] Aspirin (Asa -) 81 mg PO DAILY [facility] Bupropion HCl (Wellbutrin Xl -) 300 mg PO HS [facility] Enoxaparin Sodium (Lovenox -) 40 mg SQ DAILY [facility] Lactated Ringer's (Lactated Ringers Solution) 1,000 mls @ 75 mls/hr IV ASDIR [facility] Last Admin: 12/20/18 05:26 Dose: 75 mls/hr Multivitamins/Minerals/Vitamin C (Tab-A-Vit -) 1 tab PO DAILY [facility] Ondansetron HCl (Zofran Injection) 4 mg IVPUSH Q6H PRN PRN Reason: NAUSEA AND/OR VOMITING Last Admin: 12/19/18 18:48 Dose: 4 mg Pantoprazole Sodium (Protonix Iv) 40 mg IVPUSH BID [facility] Last Admin: 12/19/18 20:04 Dose: 40 mg Rivastigmine Tartrate (Exelon) 4.5 mg PO BID@0800,1730 [facility] - Objective Vital Signs: Vital Signs Temperature 98.5 F 12/20/18 06:05 Pulse Rate 21 L 12/20/18 06:05 Respiratory Rate 88 H 12/20/18 09:00 Blood Pressure 134/67 12/20/18 06:05 O2 Sat by Pulse Oximetry (%) 98 12/20/18 09:00 Eyes: Yes: WNL, Conjunctiva Clear, EOM Intact HENT: Yes: WNL, Atraumatic, Normocephalic Neck: Yes: WNL, Supple, Trachea Midline Cardiovascular: Yes: WNL, Regular Rate and Rhythm Respiratory: Yes: WNL, Regular, CTA Bilaterally Gastrointestinal: Yes: WNL, Normal Bowel Sounds Genitourinary: Yes: WNL Musculoskeletal: Yes: WNL Extremities: Yes: WNL Edema: No Integumentary: Yes: WNL Neurological: Yes: WNL, Alert, Oriented ...Motor Strength: WNL Psychiatric: Yes: WNL Labs: CBC, BMP 12/20/18 06:10 12/20/18 07:06 INR, PTT INR 1.12 (0.83-1.09) H 12/19/18 06:30 Assessment/Plan Left femur fx s/p op day#1 s/p mechanical fall no syncope echo april 2017 nl ef moderate AR, TR, nl rvsp htn, dementia ekg old septal mi unchanged, new lateral st changes ? LVH new from 2018 as per son no angina, chf, cad or recent mi Plan post op care as per ortho dvt plx echo
[2018-12-20] MEDS: PANTOPRAZOLE SODIUM 40 MG VIAL IVPUSH SCH ×2 (11:02→23:40)
[2018-12-20] MEDS: MULTIVITAMINS (DAILY MVI) TABLET (FP) PO SCH (11:02)
[2018-12-20] MEDS ORDERED: POTASSIUM CHLORIDE ORAL LIQUID 20 MEQ/15 ML PO ONE (11:45)
--- NOTE | 2018-12-20 12:31 | PN ---
Progress Note (short form) - Note Progress Note: ORTHOPEDIC SURGERY PROGRESS NOTE Department of Orthopedic Surgery SUBJECTIVE No acute events overnight. No complaints currently. Denies chest pain, shortness of breath, or calf pain. No nausea or vomiting. Tolerating oral intake. Pain controlled. PHYSICAL EXAMINATION General: Alert, cooperative and no distress. Lower Extremity: Dressing clean/dry/intact; Skin intact, no lesions, rashes or ulcers noted. Muscle mass equal and symmetric to contralateral side. No atrophy noted. No masses or effusions noted. No tenderness to palpation. Full passive and active ROM of the knee and ankle, free from pain. EHL/TA/GS motor intact; SILT distally; 2+ DP pulses; Cap refill brisk. DVT Exam: No evidence of DVT seen on physical exam; No cords or calf tenderness ; No significant calf/ankle edema. Intake & Output 12/18/18 12/19/18 12/20/18 23:59 23:59 23:59 Intake Total 1502 236 Output Total 3550 Balance -2047 236 Intake: IV 1502 1/2 Normal Saline 1,000 252 ml @ 42 mls/hr IV ASDIR EDGAR Rx#:[id number] Oral 236 Output: Urine 3400 [place] 2900 Estimated Blood Loss 150 Other: Voiding Method Indwelling Catheter Indwelling Catheter Weight 140 lb 138 lb 3.2 oz Height 5 ft 7 in 5 ft 7 in Body Mass Index (BMI) 21.9 21.6 Weight Measurement Method Built in [facility] Weight Measurement Method Est/Stated by Patient Active Medications Generic Name Dose Route Start Last Admin Trade Name Freq PRN Reason Stop Dose Admin Acetaminophen 650 mg 12/19/18 17:40 Tylenol - PO Q4H PRN PAIN LEVEL 1-5 Amlodipine Besylate 5 mg 12/21/18 10:00 Norvasc - PO DAILY [facility] Amlodipine Besylate 5 mg 12/20/18 11:45 Norvasc - PO DAILY [facility] Aspirin 81 mg 12/21/18 10:00 Asa - PO DAILY [facility] Enoxaparin Sodium 40 mg 12/20/18 10:00 12/20/18 11:03 Lovenox - SQ 40 mg DAILY [facility] Administration Lactated Ringer's 1,000 mls @ 75 mls/hr 12/19/18 17:40 12/20/18 05:26 Lactated Ringers Solution IV 75 mls/hr ASDIR [facility] Administration Multivitamins/Minerals/Vitamin C 1 tab 12/20/18 10:00 12/20/18 11:02 Tab-A-Vit - PO 1 tab DAILY [facility] Administration Ondansetron HCl 4 mg 12/19/18 19:17 12/19/18 18:48 Zofran Injection IVPUSH 4 mg Q6H PRN Administration NAUSEA AND/OR VOMITING Pantoprazole Sodium 40 mg 12/19/18 20:00 12/20/18 11:02 Protonix Iv IVPUSH 40 mg BID [facility] Administration Rivastigmine Tartrate 4.5 mg 12/20/18 17:30 Exelon PO BID@0800,1730 [facility] Vital Signs (last) Temp Pulse Resp BP Pulse Ox 98.3 F 86 20 140/74 98 12/20/18 10:00 12/20/18 10:00 12/20/18 10:00 12/20/18 10:00 12/20/18 09:00 Laboratory (coagulation) PT with INR 13.20 SEC (9.7-13.0) H 12/19/18 06:30 Laboratory 12/20/18 06:10 12/20/18 07:06 ASSESSMENT AND PLAN Ms. Mark is an 88 year old female s/p Left hip Hemiarthroplasty Post Op Day 1 (POD 1) - Pain control: Transition to oral pain medications, minimize narcotic use - D/C [place]john today after getting out of bed with physical therapy - DVT prophylaxis (Lovenox 40mg SQ Daily x 30 days) - Ice to Left Hip - Elevate HOB, encourage oral intake - Appreciate medical management (Nutrition optimization, decubitus precautions heel/sacrum) - PT Daily; WBAT LLE - Dressing Change POD 5 - D/C Alok POD 14 - Follow up in my office on POD 14 - Dispo planning
--- NOTE | 2018-12-20 12:41 | CON.GI ---
Consult Consult Specialty:: coverage for Dr Gutierrez - History of Present Illness History of Present Illness: 88 y/o F was asked to be seen because of coffee ground vomitus. She is s/p hemiarthoplasty yesterday. In the PACU she had 1 episode of coffee ground vomitus. She was started on IV Protonix. There were no further episodes. She takes Aspirin daily - Past Medical History [employer]: Yes: Dementia Cardio/Vascular: Yes: HTN ...: No Psych: Yes: Depression, Other (anxiety, claustrophobia) - Past Surgical History Past Surgical History: Yes: Hysterectomy - Alcohol/Substance Use Hx Alcohol Use: No - Smoking History Smoking history: Never smoked Have you smoked in the past 12 months: No Aproximately how many cigarettes per day: 0 - Social History ADL: Support Services History of Recent Travel: No Home Medications - Allergies Allergies/Adverse Reactions: Allergies Allergy/AdvReac Type Severity Reaction Status Date / Time amoxicillin [Amoxicillin] Allergy Rash Verified 12/18/18 19:01 bacitracin Allergy Verified 12/18/18 19:01 codeine [Codeine] Allergy Rash Verified 12/18/18 19:01 lorazepam [From Ativan] Allergy Verified 12/18/18 19:01 Penicillins Allergy Rash Verified 12/18/18 19:01 sertraline HCl [From Zoloft] Allergy Verified 12/18/18 19:01 Sulfa (Sulfonamide Allergy Verified 12/18/18 19:01 Antibiotics) sulfamethoxazole Allergy Verified 12/18/18 19:01 [From Bactrim] trimethoprim [From Bactrim] Allergy Verified 12/18/18 19:01 - Home Medications Home Medications: Ambulatory Orders Aspirin Chewable [Ever Children's Aspirin] 81 mg PO DAILY #0 tab.chew 03/20/11 Amlodipine Besylate [Norvasc -] 5 mg PO DAILY 07/11/15 Rivastigmine Tartrate [Exelon] 4.5 mg PO BID@0800,1730 07/05/16 Bupropion HCl [Wellbutrin Xl] 300 mg PO HS 05/20/17 Physical Exam-GI Vital Signs: Vital Signs Temperature 98.3 F 12/20/18 10:00 Pulse Rate 86 12/20/18 10:00 Respiratory Rate 20 12/20/18 10:00 Blood Pressure 140/74 12/20/18 10:00 O2 Sat by Pulse Oximetry (%) 98 12/20/18 09:00 Constitutional: Yes: Well Nourished Eyes: Yes: Conjunctiva Clear HENT: Yes: Atraumatic Neck: Yes: Supple Cardiovascular: Yes: Regular Rate and Rhythm Respiratory: Yes: CTA Bilaterally ...Palpate: Yes: Soft. No: Firm/Rigid, Guarding, Hepatomegaly, Mass, Pulsatile Mass, Splenomegaly, Tenderness, Tenderness, Epigastium Labs: CBC, BMP 12/20/18 06:10 12/20/18 07:06 INR, PTT INR 1.12 (0.83-1.09) H 12/19/18 06:30 Problem List - Problems (1) Coffee ground vomiting Assessment/Plan: resolved, r/o Peptic ulcer disease R> patient doing well, tolerating diet I spoke to her three children and would like conservative management, refused EGD at this time should be maintained on Famotidine 40mg daily as an outpatient and follow up accordingly Code(s): K92.0 - HEMATEMESIS
[2018-12-20] MEDS: amLODIPine BESYLATE 5 MG TABLET (FP) PO SCH (12:43)
[2018-12-20] MEDS: ACETAMINOPHEN 325 MG TABLET (FP) PO PRN ×2 (12:44→16:47)
[2018-12-20 12:49] LABS: HEMATOCRIT 31.3 % (32.4-45.2); HEMOGLOBIN 10.3 GM/dL (10.7-15.3); MCH 31.4 pg (25.7-33.7); MEAN PLT VOLUME 9.5 fl (7.5-11.1); PLATELET COUNT 187 K/MM3 (134-434); RBC 3.29 M/mm3 (3.60-5.2); RDW 13.1 % (11.6-15.6); WHITE BLOOD COUNT 12.7 K/mm3 (4.0-10.0)
[2018-12-20] MEDS: RIVASTIGMINE TARTRATE 1.5 MG CAPSULE PO SCH (16:48)
[2018-12-20 18:08] LABS: HEMATOCRIT 28.9 % (32.4-45.2); HEMOGLOBIN 9.5 GM/dL (10.7-15.3); MCH 31.3 pg (25.7-33.7); MCHC 32.9 g/dl (32.0-36.0); MEAN CELL VOLUME 95.2 fl (80-96); MEAN PLT VOLUME 9.1 fl (7.5-11.1); PLATELET COUNT 178 K/MM3 (134-434); RBC 3.04 M/mm3 (3.60-5.2); RDW 12.9 % (11.6-15.6); WHITE BLOOD COUNT 11.7 K/mm3 (4.0-10.0)
--- NOTE | 2018-12-20 19:56 | PN ---
Progress Note (short form) - Note Progress Note: Anesthesiology Post-op POD#1 s/p hip hemiarthroplasty under spinal and sedation. Pt. doing well today, with pain at a manageable level. VSS. No complaints. No apparent anesthesia-related issues. 88 y.o. woman with stable post-operative course. Continue management as per primary team.
[2018-12-21] MEDS: ACETAMINOPHEN 325 MG TABLET (FP) PO PRN ×3 (08:47→21:17)
[2018-12-21] MEDS: RIVASTIGMINE TARTRATE 1.5 MG CAPSULE PO SCH ×2 (08:48→17:29)
[2018-12-21] MEDS: ENOXAPARIN NA (PORCINE) 40 MG/0.4 ML DISP.SYRIN SQ SCH (09:00)
[2018-12-21] MEDS: amLODIPine BESYLATE 5 MG TABLET (FP) PO SCH ×2 (09:10→09:29)
[2018-12-21] MEDS: PANTOPRAZOLE SODIUM 40 MG VIAL IVPUSH SCH ×2 (09:10→21:17)
[2018-12-21] MEDS: ASPIRIN 81 MG CHEWABLE TABLETS PO SCH (09:10)
[2018-12-21] MEDS: MULTIVITAMINS (DAILY MVI) TABLET (FP) PO SCH (09:10)
[2018-12-21] MEDS: LACTATED RINGERS SOLUTION 1,000 ML IV SCH ×2 (09:10→21:16)
--- NOTE | 2018-12-21 09:30 | PN ---
Progress Note (short form) - Note Progress Note: ORTHOPEDIC SURGERY PROGRESS NOTE Department of Orthopedic Surgery SUBJECTIVE Littlejohn removed yesterday, and reinserted when patient was unable to void. Had one episode of emesis yesterday. No complaints currently. Denies chest pain, shortness of breath, or calf pain. Tolerating oral intake. Pain controlled. PHYSICAL EXAMINATION General: Alert, cooperative and no distress. Lower Extremity: Dressing clean/dry/intact; Skin intact, no lesions, rashes or ulcers noted. Muscle mass equal and symmetric to contralateral side. No atrophy noted. No masses or effusions noted. No tenderness to palpation. Full passive and active ROM of the knee and ankle, free from pain. EHL/TA/GS motor intact; SILT distally; 2+ DP pulses; Cap refill brisk. DVT Exam: No evidence of DVT seen on physical exam; No cords or calf tenderness ; No significant calf/ankle edema. Intake & Output 12/19/18 12/20/18 12/21/18 23:59 23:59 23:59 Intake Total 1502 236 Output Total 3550 150 700 86 -700 Intake: IV 1502 1/2 Normal Saline 1,000 252 ml @ 42 mls/hr IV ASDIR EDGAR Rx#:[id number] Oral 236 Output: Urine 3400 150 700 Littlejohn 2900 150 700 Estimated Blood Loss 150 Other: Voiding Method Indwelling Catheter Indwelling Catheter Weight 138 lb 3.2 oz Height 5 ft 7 in Body Mass Index (BMI) 21.6 Weight Measurement Method Built in [facility] Active Medications Generic Name Dose Route Start Last Admin Trade Name Freq PRN Reason Stop Dose Admin Acetaminophen 650 mg 12/19/18 17:40 12/21/18 08:47 Tylenol - PO 650 mg Q4H PRN Administration PAIN LEVEL 1-5 Amlodipine Besylate 5 mg 12/21/18 10:00 12/21/18 09:10 Norvasc - PO 5 mg DAILY EDGAR Administration Amlodipine Besylate 5 mg 12/20/18 11:45 12/20/18 12:43 Norvasc - PO 5 mg DAILY EDGAR Administration Aspirin 81 mg 12/21/18 10:00 12/21/18 09:10 Asa - PO 81 mg DAILY EDGAR Administration Enoxaparin Sodium 40 mg 12/21/18 10:00 12/21/18 09:00 Lovenox - SQ 40 mg DAILY EDGAR Administration Lactated Ringer's 1,000 mls @ 75 mls/hr 12/19/18 17:40 12/21/18 09:10 Lactated Ringers Solution IV 75 mls/hr ASDIR EDGAR Administration Multivitamins/Minerals/Vitamin C 1 tab 12/20/18 10:00 12/21/18 09:10 Tab-A-Vit - PO 1 tab DAILY EDGAR Administration Ondansetron HCl 4 mg 12/19/18 19:17 12/19/18 18:48 Zofran Injection IVPUSH 4 mg Q6H PRN Administration NAUSEA AND/OR VOMITING Pantoprazole Sodium 40 mg 12/19/18 20:00 12/21/18 09:10 Protonix Iv IVPUSH 40 mg BID EDGAR Administration Rivastigmine Tartrate 4.5 mg 12/20/18 17:30 12/21/18 08:48 Exelon PO 4.5 mg BID@0800,1730 EDGAR Administration Vital Signs (last) Temp Pulse Resp BP Pulse Ox 99 F 81 20 110/58 L 98 12/20/18 20:48 12/20/18 20:48 12/20/18 20:48 12/20/18 20:48 12/20/18 09:00 Laboratory (coagulation) PT with INR 13.20 SEC (9.7-13.0) H 12/19/18 06:30 Laboratory 12/20/18 17:56 12/20/18 07:06 ASSESSMENT AND PLAN Ms. Mark is an 88 year old female s/p Left hip Hemiarthroplasty Post Op Day 2 (POD 2) - Pain control: Transition to oral pain medications, minimize narcotic use - D/C [place] as soon as medical team allows - DVT prophylaxis (Lovenox 40mg SQ Daily x 30 days) - Ice to Left Hip - Follow up Labs, transfuse hemaglobin below 8 - Elevate HOB, encourage oral intake - Appreciate GI consult - Appreciate medical management (constipation relief, nutrition optimization, decubitus precautions heel/sacrum) - PT Daily; WBAT LLE - Dressing Change POD 5 - D/C [place] POD 14 - Follow up in my office on POD 14 - Dispo planning
[2018-12-21] MEDS ORDERED: SENNOSIDES 8.6MG TABLET (FP) PO PRN (10:34)
[2018-12-21 10:46] LABS: HEMATOCRIT 28.7 % (32.4-45.2); HEMOGLOBIN 9.7 GM/dL (10.7-15.3); MEAN CELL VOLUME 94.1 fl (80-96); MEAN PLT VOLUME 9.8 fl (7.5-11.1); PLATELET COUNT 185 K/MM3 (134-434); RBC 3.05 M/mm3 (3.60-5.2); RDW 12.7 % (11.6-15.6); WHITE BLOOD COUNT 13.3 K/mm3 (4.0-10.0)
[2018-12-21] MEDS: DOCUSATE SODIUM 100 MG CAPSULE (FP) PO SCH (10:53)
[2018-12-21 11:21] LABS: BLOOD UREA NITROGEN 10.2 mg/dL (7-18); CALCIUM 7.6 mg/dL (8.5-10.1); CREATININE 0.5 mg/dL (0.55-1.3); POTASSIUM 3.5 mmol/L (3.5-5.1)
--- NOTE | 2018-12-21 16:13 | PN ---
Progress Note, Physician History of Present Illness: 88 y/o female presenting to [facility] ER complaining of left hip pain and difficulty ambulating after falling around 17:30 this evening. The pt fell to her left side from seated position on a radiator cover at home. Reports striking her head but denies headache, neck pain, or LOC. Was not able to stand afterwards, but crawled into a seated position. The fall was witnessed but her son arrived at her side within approx. 15 min. Pt takes baby ASA daily. No anticoagulants. - Current Medication List Current Medications: Active Medications Acetaminophen (Tylenol -) 650 mg PO Q4H PRN PRN Reason: PAIN LEVEL 1-5 Last Admin: 12/21/18 14:40 Dose: 650 mg Amlodipine Besylate (Norvasc -) 5 mg PO DAILY [facility] Last Admin: 12/21/18 09:10 Dose: 5 mg Amlodipine Besylate (Norvasc -) 5 mg PO DAILY [facility] Last Admin: 12/21/18 09:29 Dose: Not Given Aspirin (Asa -) 81 mg PO DAILY [facility] Last Admin: 12/21/18 09:10 Dose: 81 mg Docusate Sodium (Colace -) 100 mg PO DAILY [facility] Last Admin: 12/21/18 10:53 Dose: 100 mg Enoxaparin Sodium (Lovenox -) 40 mg SQ DAILY [facility] Last Admin: 12/21/18 09:00 Dose: 40 mg Lactated Ringer's (Lactated Ringers Solution) 1,000 mls @ 75 mls/hr IV ASDIR [facility] Last Admin: 12/21/18 09:10 Dose: 75 mls/hr Multivitamins/Minerals/Vitamin C (Tab-A-Vit -) 1 tab PO DAILY [facility] Last Admin: 12/21/18 09:10 Dose: 1 tab Ondansetron HCl (Zofran Injection) 4 mg IVPUSH Q6H PRN PRN Reason: NAUSEA AND/OR VOMITING Last Admin: 12/19/18 18:48 Dose: 4 mg Pantoprazole Sodium (Protonix Iv) 40 mg IVPUSH BID [facility] Last Admin: 12/21/18 09:10 Dose: 40 mg Rivastigmine Tartrate (Exelon) 4.5 mg PO BID@0800,1730 [facility] Last Admin: 12/21/18 08:48 Dose: 4.5 mg Senna (Senna -) 2 tab PO HS PRN PRN Reason: CONSTIPATION - Objective Vital Signs: Vital Signs Temperature 97.9 F 12/21/18 10:00 Pulse Rate 96 H 12/21/18 10:00 Respiratory Rate 18 12/21/18 10:00 Blood Pressure 130/60 12/21/18 10:00 O2 Sat by Pulse Oximetry (%) 95 12/21/18 09:00 Eyes: Yes: WNL, Conjunctiva Clear, EOM Intact HENT: Yes: WNL, Atraumatic, Normocephalic Neck: Yes: WNL, Supple, Trachea Midline Cardiovascular: Yes: WNL, Regular Rate and Rhythm Respiratory: Yes: WNL, Regular, CTA Bilaterally Gastrointestinal: Yes: WNL, Normal Bowel Sounds Genitourinary: Yes: WNL Musculoskeletal: Yes: WNL Extremities: Yes: WNL Edema: No Integumentary: Yes: WNL Neurological: Yes: WNL, Alert, Oriented ...Motor Strength: WNL Psychiatric: Yes: WNL Labs: CBC, BMP 12/21/18 10:15 12/21/18 10:15 INR, PTT INR 1.12 (0.83-1.09) H 12/19/18 06:30 Assessment/Plan Left femur fx s/p op day#2 s/p mechanical fall no syncope echo april 2017 nl ef moderate AR, TR, nl rvsp htn, dementia ekg old septal mi unchanged, new lateral st changes ? LVH new from 2018 as per son no angina, chf, cad or recent mi Plan post op care as per ortho dvt plx echo
--- NOTE | 2018-12-21 18:02 | PN ---
Progress Note (short form) - Note Progress Note: HPI: Pt is POD2 from L hip fracture repair. Pt has been working with PT, however maximal assist of 2. Pt's family at bedside report no BM at this time and continued use of incentive spirometer. Pt with instances of sundowning noted on previous notes in EMR PE: GEN: NAD, awake, alert, oriented x3 at time of exam HEENT: NC/AT, ABIEL, sclera anicteric, MMM LUNG: CTA b/l with diminished breath sounds at the bases. No wheezes, on RA Card: RRR no murmurs appreciated ABD: Soft, NT/ND, hypoactive BS, no guarding EXT: L leg with immobilizer cast on board, distal pulses strong, motion limited 2/2 to pain CBC, BMP 12/21/18 10:15 12/21/18 10:15 Active Medications Acetaminophen (Tylenol -) 650 mg PO Q4H PRN PRN Reason: PAIN LEVEL 1-5 Last Admin: 12/21/18 21:17 Dose: 650 mg Amlodipine Besylate (Norvasc -) 5 mg PO DAILY [facility] Last Admin: 12/21/18 09:10 Dose: 5 mg Amlodipine Besylate (Norvasc -) 5 mg PO DAILY [facility] Last Admin: 12/21/18 09:29 Dose: Not Given Aspirin (Asa -) 81 mg PO DAILY [facility] Last Admin: 12/21/18 09:10 Dose: 81 mg Docusate Sodium (Colace -) 100 mg PO DAILY [facility] Last Admin: 12/21/18 10:53 Dose: 100 mg Enoxaparin Sodium (Lovenox -) 40 mg SQ DAILY [facility] Last Admin: 12/21/18 09:00 Dose: 40 mg Lactated Ringer's (Lactated Ringers Solution) 1,000 mls @ 75 mls/hr IV ASDIR [facility] Last Admin: 12/21/18 21:16 Dose: 75 mls/hr Multivitamins/Minerals/Vitamin C (Tab-A-Vit -) 1 tab PO DAILY [facility] Last Admin: 12/21/18 09:10 Dose: 1 tab Ondansetron HCl (Zofran Injection) 4 mg IVPUSH Q6H PRN PRN Reason: NAUSEA AND/OR VOMITING Last Admin: 12/19/18 18:48 Dose: 4 mg Pantoprazole Sodium (Protonix Iv) 40 mg IVPUSH BID [facility] Last Admin: 12/21/18 21:17 Dose: 40 mg Rivastigmine Tartrate (Exelon) 4.5 mg PO BID@0800,1730 [facility] Last Admin: 12/21/18 17:29 Dose: 4.5 mg Senna (Senna -) 2 tab PO HS PRN PRN Reason: CONSTIPATION Assessment and Plan: L closed hip fracture POD 2 H/o HTN 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 --Continue physical therapy at this time --Pain control with Tylenol currently with moderate efficacy -Would avoid narcotics due to likelihood of worsening sundowning --Continue Home antihypertensives: Norvasc 5mg qdaily --ASA 81mg qdaily to continue --Added Senna and Colace for bowel regiment --LR @75cc/hr; can likely d/c when pt eating sufficiently --attempt to reorient to room for sundowning FEN: Fluids: LR @75cc/hr Electrolyte abnormalities: None Nutrition: Advance as per ortho PPX; DVt - Lovenox SQ daily GI - Protonix 40mg Dispo: Continued physical therapy; awaiting placement to rehab Case discussed with Dr. Arlin Nieto, DO - IM PGy-3 <Ben Nieto - Last Filed: 12/21/18 23:45> - Note Progress Note: Seen and examined; agree with resident note as documented above aside from as I supplemented; independently verified all historical and PE findings and reviewed all labs, imaging, and diagnostics. Discussed with consutling service. Seen by GI for w/u of PUD. H/H stable but postop concern for bleed. No further issues; refused EGD and wishes for postop followup. Denys dela cruz recommends famotidine. Followup CBC. Can DC [place]. Discussed with resident and consuting teams. Discussed with CM; overall the plan is to continue working with PT and followup orthopedic DC instructions per surgical consults with: PT Daily; WBAT LLE - Dressing Change POD 5 - D/C [place] POD 14 - Follow up in my office on POD 14 - Dispo planning No new complaints with 10 sys ROS done and negative aside from HPI. Neurovascularly intact with stable postoperative changes (no cellulitis or bleeds noted, c/d/i covering) NAD, AAO, resting in bed. Pleasant but cognitive impairment evident; not actively demented. NC AT EOMI PERRLA HR wnl, s1/2 noted Lungs CTAB, w/ sym exp NT ND +BS CN2-12 wnl, no fnd Normal mood, appropriate behavior, impaired recall +LE pulses with warm ext b/l and intact ankle circumduction Labs and imaging independently renewed A/P: Patient presents for hip fracture and is doing well postoperatively with no immediate complications. Followup with ortho and continue to manage with indicated DC instructions. DC [place] and work with PT as tolerated. Pain control with bowel regimine. She will be monitored on the medicine service until DC and will likely depart in 24-48 hours pending acceptance and bed availability Agree with problem list in resident note DNR/I Fall Precautions Appreciate excellent care rendered by consulting services. <Duncan Oliveros - Last Filed: 12/23/18 00:23>
[2018-12-22 07:49] LABS: HEMATOCRIT 27.8 % (32.4-45.2); HEMOGLOBIN 9.6 GM/dL (10.7-15.3); MCH 32.1 pg (25.7-33.7); MCHC 34.4 g/dl (32.0-36.0); MEAN CELL VOLUME 93.2 fl (80-96); MEAN PLT VOLUME 9.6 fl (7.5-11.1); PLATELET COUNT 207 K/MM3 (134-434); RBC 2.98 M/mm3 (3.60-5.2); RDW 12.8 % (11.6-15.6); WHITE BLOOD COUNT 13.1 K/mm3 (4.0-10.0)
[2018-12-22 08:01] LABS: ALBUMIN 2.3 g/dl (3.4-5.0); BLOOD UREA NITROGEN 9.8 mg/dL (7-18); CALCIUM 7.7 mg/dL (8.5-10.1); CREATININE 0.4 mg/dL (0.55-1.3); POTASSIUM 3.3 mmol/L (3.5-5.1)
[2018-12-22] MEDS: RIVASTIGMINE TARTRATE 1.5 MG CAPSULE PO SCH ×2 (08:40→16:38)
--- NOTE | 2018-12-22 08:49 | PN ---
Progress Note (short form) - Note Progress Note: ORTHOPEDIC SURGERY PROGRESS NOTE Department of Orthopedic Surgery SUBJECTIVE No acute overnight events. No complaints currently. Denies chest pain, shortness of breath, or calf pain. Tolerating oral intake. Pain controlled. Patient was able to get up with PT yesterday. PHYSICAL EXAMINATION General: Alert, confused, cooperative and no distress. Lower Extremity: Dressing clean/dry/intact; Skin intact, no lesions, rashes or ulcers noted. Muscle mass equal and symmetric to contralateral side. No atrophy noted. No masses or effusions noted. No tenderness to palpation. Full passive and active ROM of the knee and ankle, free from pain. EHL/TA/GS motor intact; SILT distally; 2+ DP pulses; Cap refill brisk. DVT Exam: No evidence of DVT seen on physical exam; No cords or calf tenderness ; No significant calf/ankle edema. Intake & Output 12/20/18 12/21/18 12/22/18 23:59 23:59 23:59 Intake Total 236 1061 Output Total 150 1800 200 Balance 86 -739 -200 Intake: IV 825 Lactated Ringers Solution 825 1,000 ml @ 75 mls/hr IV ASDIR EDGAR Rx#:[id number] Oral 236 236 Output: Urine 150 1800 200 Littlejohn 150 1800 200 Other: Voiding Method Indwelling Catheter Indwelling Catheter Bowel Movement No Active Medications Generic Name Dose Route Start Last Admin Trade Name Freq PRN Reason Stop Dose Admin Acetaminophen 650 mg 12/19/18 17:40 12/21/18 21:17 Tylenol - PO 650 mg Q4H PRN Administration PAIN LEVEL 1-5 Amlodipine Besylate 5 mg 12/21/18 10:00 12/21/18 09:10 Norvasc - PO 5 mg DAILY EDGAR Administration Aspirin 81 mg 12/21/18 10:00 12/21/18 09:10 Asa - PO 81 mg DAILY EDGAR Administration Docusate Sodium 100 mg 12/21/18 10:45 12/21/18 10:53 Colace - PO 100 mg DAILY EDGAR Administration Enoxaparin Sodium 40 mg 12/21/18 10:00 12/21/18 09:00 Lovenox - SQ 40 mg DAILY EDGAR Administration Lactated Ringer's 1,000 mls @ 75 mls/hr 12/19/18 17:40 12/21/18 21:16 Lactated Ringers Solution IV 75 mls/hr ASDIR EDGAR Administration Multivitamins/Minerals/Vitamin C 1 tab 12/20/18 10:00 12/21/18 09:10 Tab-A-Vit - PO 1 tab DAILY EDGAR Administration Ondansetron HCl 4 mg 12/19/18 19:17 12/19/18 18:48 Zofran Injection IVPUSH 4 mg Q6H PRN Administration NAUSEA AND/OR VOMITING Pantoprazole Sodium 40 mg 12/19/18 20:00 12/21/18 21:17 Protonix Iv IVPUSH 40 mg BID EDGAR Administration Rivastigmine Tartrate 4.5 mg 12/20/18 17:30 12/21/18 17:29 Exelon PO 4.5 mg BID@0800,1730 EDGAR Administration Senna 2 tab 12/21/18 10:34 Senna - PO HS PRN CONSTIPATION Vital Signs (last) Temp Pulse Resp BP Pulse Ox 98.8 F 98 H 18 114/65 95 12/22/18 06:00 12/22/18 06:00 12/22/18 06:00 12/22/18 06:00 12/21/18 19:46 Laboratory (coagulation) PT with INR 13.20 SEC (9.7-13.0) H 12/19/18 06:30 Laboratory 12/22/18 06:45 12/22/18 06:45 ASSESSMENT AND PLAN Ms. Mark is an 88 year old female s/p Left hip Hemiarthroplasty Post Op Day 3 (POD 3) - Pain control: Transition to oral pain medications, minimize narcotic use - D/C [place] as soon as medical team allows - DVT prophylaxis (Lovenox 40mg SQ Daily x 30 days) - Follow up Labs, transfuse hemaglobin below 8 - Elevate HOB, encourage oral intake - Appreciate GI consult - Appreciate medical management (constipation relief, nutrition optimization, decubitus precautions heel/sacrum) - PT Daily; WBAT LLE - ICE to left hip; Keep dressings dry - Dressing Change POD 5 - D/C [place] POD 14 - Abduction pillow in place while in bed - Knee immobilizer to left knee while in bed - SCD's bilateral lower extremities - Follow up in my office on POD 14 - Dispo planning
[2018-12-22] MEDS ORDERED: POTASSIUM CHLORIDE TABS 20 MEQ TABLET.ER (FP) PO ONE (09:20)
[2018-12-22] MEDS: ENOXAPARIN NA (PORCINE) 40 MG/0.4 ML DISP.SYRIN SQ SCH (09:40)
[2018-12-22] MEDS: DOCUSATE SODIUM 100 MG CAPSULE (FP) PO SCH (09:40)
[2018-12-22] MEDS: MULTIVITAMINS (DAILY MVI) TABLET (FP) PO SCH (09:40)
[2018-12-22] MEDS: PANTOPRAZOLE SODIUM 40 MG VIAL IVPUSH SCH (09:40)
[2018-12-22] MEDS: ASPIRIN 81 MG CHEWABLE TABLETS PO SCH (09:40)
[2018-12-22] MEDS: amLODIPine BESYLATE 5 MG TABLET (FP) PO SCH (09:40)
[2018-12-22] MEDS ORDERED: LACTULOSE 20 GM/30 ML UDC (FOR ORAL USE ONLY) PO ONE (10:00)
[2018-12-22] MEDS: ACETAMINOPHEN 325 MG TABLET (FP) PO PRN ×3 (10:09→21:09)
--- NOTE | 2018-12-22 10:22 | DS ---
Physical Exam: SUBJECTIVE: HPI: Pt is POD3 from L hip fracture repair. Pt with notable sundowning episodes throughout night. Pt sleeping at time of exam, but arousable. OBJECTIVE: Vital Signs Period Temp Pulse Resp BP Sys/Rodriguez Pulse Ox Last 24 Hr 97.8 F-99.3 F 87-98 18-18 114-135/65-70 95 PE: GEN: NAD, awake, alert, oriented x3 at time of exam HEENT: NC/AT, ABIEL, sclera anicteric, MMM LUNG: CTA b/l with diminished breath sounds at the bases. No wheezes, on RA Card: RRR no murmurs appreciated ABD: Soft, NT/ND, hypoactive BS, no guarding EXT: L leg with immobilizer cast on board, distal pulses strong, motion limited 2/2 to pain CBC, BMP LABS Laboratory Results - last 24 hr 12/21/18 12/21/18 12/22/18 10:15 10:15 06:45 WBC 13.3 H 13.1 H RBC 3.05 L 2.98 L Hgb 9.7 L 9.6 L Hct 28.7 L 27.8 L MCV 94.1 93.2 MCH 32.0 32.1 MCHC 34.0 34.4 RDW 12.7 12.8 Plt Count 185 207 MPV 9.8 9.6 Sodium 135 L Potassium 3.5 Chloride 101 Carbon Dioxide 25 Anion Gap 8 BUN 10.2 Creatinine 0.5 L Est GFR (CKD-EPI)AfAm 99.45 Est GFR (CKD-EPI)NonAf 85.81 Random Glucose 136 H Calcium 7.6 L Albumin 12/22/18 06:45 WBC RBC Hgb Hct MCV MCH MCHC RDW Plt Count MPV Sodium 138 Potassium 3.3 L Chloride 102 Carbon Dioxide 28 Anion Gap 8 BUN 9.8 Creatinine 0.4 L Est GFR (CKD-EPI)AfAm 107.03 Est GFR (CKD-EPI)NonAf 92.34 Random Glucose 99 Calcium 7.7 L Albumin 2.3 L Active Medications Acetaminophen (Tylenol -) 650 mg PO Q4H PRN PRN Reason: PAIN LEVEL 1-5 Last Admin: 12/22/18 21:09 Dose: 650 mg Amlodipine Besylate (Norvasc -) 5 mg PO DAILY [facility] Last Admin: 12/22/18 09:40 Dose: 5 mg Aspirin (Asa -) 81 mg PO DAILY [facility] Last Admin: 12/22/18 09:40 Dose: 81 mg Docusate Sodium (Colace -) 100 mg PO DAILY [facility] Last Admin: 12/22/18 09:40 Dose: 100 mg Enoxaparin Sodium (Lovenox -) 40 mg SQ DAILY [facility] Last Admin: 12/22/18 09:40 Dose: 40 mg Multivitamins/Minerals/Vitamin C (Tab-A-Vit -) 1 tab PO DAILY [facility] Last Admin: 12/22/18 09:40 Dose: 1 tab Ondansetron HCl (Zofran Injection) 4 mg IVPUSH Q6H PRN PRN Reason: NAUSEA AND/OR VOMITING Last Admin: 12/19/18 18:48 Dose: 4 mg Pantoprazole Sodium (Protonix -) 40 mg PO BID [facility] Last Admin: 12/22/18 21:10 Dose: 40 mg Rivastigmine Tartrate (Exelon) 4.5 mg PO BID@0800,1730 [facility] Last Admin: 12/22/18 16:38 Dose: 4.5 mg Senna (Senna -) 2 tab PO HS PRN PRN Reason: CONSTIPATION Imaging: Head CT: Impression: No CT evidence of acute intracranial pathology. Mild to moderate periventricular chronic microvascular ischemic changes are noted. 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 Pelvis CT: An acute left femoral neck fracture is noted with posterior angulation. The remaining osseous structures appear intact. Incidental note is made of a small enchondroma within the right sacral ala as on a prior CT exam of 03/05/2011. No soft tissue hematoma is identified. Multilevel lower lumbar degenerative disc and facet joint changes are seen. Impression: Acute left femoral neck fracture. Femur XR: Impression: Acute left femoral neck fracture with varus deformity. HIP/Pelvis Post-op XR 2 images include the pelvis and left hip. The imaging reveals a left hip replacement with soft tissue air and rach. The pelvis appears intact. There is a slight scoliosis with arthritic changes and retained stool. The distal femur appears intact. A brace is seen about the knee. Correlation recommended. The imaging is available for review. HOSPITAL COURSE: Date of Admission:12/18/18 Date of Discharge: 12/22/18 Pt hospitalized on 12/18/18 due to mechanical fall leading to L hip fracture where she underwent L hip hemiarthroplasty with Dr. Caceres. Pt's procedure was uncomplicated with no notable events during recovery. In her post-operative period pt was noted to have questionable coffee-ground emesis and was assessed by GI. Pt and family refused EGD and CBC remained stable so it was recommended to continue Famotidine 20mg BID PO. Pt was placed in immobilizer and worked with physical therapy. Unfortunately patient still requires increased assist, and was recommended to undergo physical therapy at a rehabilitation center. Pt is noted to have sundowning episodes, however responds to reorientation. Zyprexa 5mg qdaily was initiated as a result to help with agitation in acute setting. Pt was continued on her regular home medications during her hospitalization and has no diet restrictions at this time. Minutes to complete discharge: 35 <Ben Nieto - Last Filed: 12/22/18 23:09> Physical Exam: POD#3 No bleeding observed, h/h stable, no new complaints. Seen by ortho and PT. No issues per nursing. Pending facility transfer. DC instructions per orthopedics as follows: PT Daily; WBAT LLE - Dressing Change POD 5 - D/C [place] POD 14 - Follow up in my office on POD 14 - Dispo planning No new complaints with 10 sys ROS done and negative aside from HPI. Neurovascularly intact with stable postoperative changes (no cellulitis or bleeds noted, c/d/i covering) NAD, AAO, resting in bed. Pleasant but cognitive impairment evident; not actively demented. NC AT EOMI PERRLA HR wnl, s1/2 noted Lungs CTAB, w/ sym exp NT ND +BS CN2-12 wnl, no fnd Normal mood, appropriate behavior, impaired recall +LE pulses with warm ext b/l and intact ankle circumduction Labs and imaging independently renewed A/P: Patient presents for hip fracture and is doing well postoperatively with no immediate complications. Followup with ortho and continue to manage with indicated DC instructions. Pain control with bowel regimine. She will be monitored on the medicine service until DC and will likely depart in 24 hours pending bed availability Agree with problem list in resident note DNR/I Fall Precautions Appreciate excellent care rendered by consulting services. Agree with followups and DC instructions as documented by resident team. <Duncan Oliveros - Last Filed: 12/23/18 00:26> Discharge Summary Problems reviewed: Yes Reason For Visit: CLOSED FX OF LEFT HIP Current Active Problems Coffee ground vomiting (Acute) - Home Medications Comprehensive Discharge Medication List: Ambulatory Orders Aspirin Chewable [Ever Children's Aspirin] 81 mg PO DAILY #0 tab.chew 03/20/11 Amlodipine Besylate [Norvasc -] 5 mg PO DAILY 07/11/15 Rivastigmine Tartrate [Exelon] 4.5 mg PO BID@0800,1730 07/05/16 Bupropion HCl [Wellbutrin Xl] 300 mg PO HS 05/20/17 <Ben Nieto - Last Filed: 12/22/18 23:09> Current Active Problems Coffee ground vomiting (Acute) - Home Medications Comprehensive Discharge Medication List: Ambulatory Orders Aspirin Chewable [Ever Children's Aspirin] 81 mg PO DAILY #0 tab.chew 03/20/11 Amlodipine Besylate [Norvasc -] 5 mg PO DAILY 07/11/15 Rivastigmine Tartrate [Exelon] 4.5 mg PO BID@0800,1730 07/05/16 Bupropion HCl [Wellbutrin Xl] 300 mg PO HS 05/20/17 <Duncan Oliveros - Last Filed: 12/23/18 00:26> Condition: Stable - Instructions Diet, Activity, Other Instructions: You were hospitalized for an acute hip fracture and were operated on by Dr. Caceres with a Gamma Nail Procedure. Diet: Resume Home Diet Activity: Resume Home Activity Followups: -Aurelio -Nicki -PCP Referrals: Russell Mckinney [Primary Care Provider] - Forrest Carey MD [Staff Physician] - Canelo Caceres DO [Staff Physician] - Disposition: INTERMEDIATE FACILITY This patient is new to me today: No Emergency Visit: Yes ED Registration Date: 12/18/18 Care time: The patient presented to the Emergency Department on the above date and was hospitalized for further evaluation of their emergent condition. Critical Care patient: No - Discharge Referral Referred to [facility] No <Ben Nieto - Last Filed: 12/22/18 23:09> ATTENDING PHYSICIAN STATEMENT I saw and evaluated the patient. I reviewed the resident's note and discussed the case with the resident. I agree with the resident's findings and plan as documented. SUBJECTIVE: OBJECTIVE: ASSESSMENT AND PLAN: <Ben Nieto - Last Filed: 12/22/18 23:09> ATTENDING PHYSICIAN STATEMENT I saw and evaluated the patient. I reviewed the resident's note and discussed the case with the resident. I agree with the resident's findings and plan as documented. SUBJECTIVE: OBJECTIVE: ASSESSMENT AND PLAN: <Duncan Oliveros - Last Filed: 12/23/18 00:26>
[2018-12-22] MEDS ORDERED: diazePAM 5 MG TABLET PO ONE (15:22)
--- NOTE | 2018-12-22 17:06 | PATH ---
Surgical Pathology Report Patient Name: JESSE MARQUEZ Med. Rec. #: [id number] /Age/Gender: 1930 (Age: 88) / F Account: [id number] Location: [address] [place] [address]/[facility] Taken: 12/19/2018 Received: 12/21/2018 Reported: 12/22/2018 Physicians: Canelo Hurley M.D. Specimen(s) Received LEFT FEMORAL HEAD Clinical History Closed fracture of left hip Final Diagnosis BONE, FEMORAL HEAD, LEFT, HEMIARTHROPLASTY: BONE WITH INTERSTITIAL HEMORRHAGE CONSISTENT WITH FRACTURE. Electronically Signed Jonelle Shah M.D. Gross Description Received in formalin labeled "left femoral head," is a 4.2 x 4.2 x 3.2 cm femoral head with no femoral neck attached. The margin of resection is red-brown, jagged and hemorrhagic. The articular surface is eral-yellow and focally granular. No areas of eburnation are identified. The underlying trabecular bone is yellow, hard and focally hemorrhagic. Separately received within the same container is a 3.5 x 2.7 x 1.4 cm hemorrhagic portion of femoral neck. Wrapping Checker sections are submitted in one cassette, following decalcification. 12/21/201812/21/2018
--- NOTE | 2018-12-22 21:47 | PN ---
Progress Note, Physician Chief Complaint: Pt says she has suffered from claustrophobia "all my life", and thought her left leg was tied down and causing her to "go out of my mind". (the leg is actually not tied down, but in flex-cast). History of Present Illness: Patient is an 88 year old woman with PMH of HTN, HLD, Anxiety, Dementia, Left sphenoid ridge meningioma and Multiple drug allergies including penicillin presenting to the ER complaining of left hip pain and difficulty ambulating after falling around 17:30 this evening. Patient fell to her left side from seated position on a radiator cover at home. Reports striking her head but denies headache, neck pain, or LOC. Was not able to stand afterwards, but crawled into a seated position. The fall was witnessed but her son arrived at her side within approximately 15 minutes. Pt takes baby ASA daily. Not on anticoagulants. Lives at home with home health aide and normally ambulates without assistance - "was raking leaves all day today". Denies alcohol, tobacco or illicit drug use. No fever, chills, photophobia, SOB, vomiting, chest pain, dysuria, frequency or urgency. - Current Medication List Current Medications: Active Medications Acetaminophen (Tylenol -) 650 mg PO Q4H PRN PRN Reason: PAIN LEVEL 1-5 Last Admin: 12/22/18 21:09 Dose: 650 mg Amlodipine Besylate (Norvasc -) 5 mg PO DAILY [facility] Last Admin: 12/22/18 09:40 Dose: 5 mg Aspirin (Asa -) 81 mg PO DAILY [facility] Last Admin: 12/22/18 09:40 Dose: 81 mg Docusate Sodium (Colace -) 100 mg PO DAILY [facility] Last Admin: 12/22/18 09:40 Dose: 100 mg Enoxaparin Sodium (Lovenox -) 40 mg SQ DAILY [facility] Last Admin: 12/22/18 09:40 Dose: 40 mg Multivitamins/Minerals/Vitamin C (Tab-A-Vit -) 1 tab PO DAILY [facility] Last Admin: 12/22/18 09:40 Dose: 1 tab Ondansetron HCl (Zofran Injection) 4 mg IVPUSH Q6H PRN PRN Reason: NAUSEA AND/OR VOMITING Last Admin: 12/19/18 18:48 Dose: 4 mg Pantoprazole Sodium (Protonix -) 40 mg PO BID [facility] Last Admin: 12/22/18 21:10 Dose: 40 mg Rivastigmine Tartrate (Exelon) 4.5 mg PO BID@0800,1730 [facility] Last Admin: 12/22/18 16:38 Dose: 4.5 mg Senna (Senna -) 2 tab PO HS PRN PRN Reason: CONSTIPATION - Objective Vital Signs: Vital Signs Temperature 96.8 F L 12/22/18 20:09 Pulse Rate 79 12/22/18 20:09 Respiratory Rate 18 12/22/18 14:00 Blood Pressure 134/71 12/22/18 20:09 O2 Sat by Pulse Oximetry (%) 94 L 12/22/18 09:00 Constitutional: Yes: Anxious Eyes: Yes: WNL Labs: CBC, BMP 12/22/18 06:45 12/22/18 06:45 INR, PTT INR 1.12 (0.83-1.09) H 12/19/18 06:30 Problem List - Problems (1) Hip fracture, left Code(s): S72.002A - FRACTURE OF UNSP PART OF NECK OF LEFT FEMUR, INIT (2) Dementia Code(s): F03.90 - UNSPECIFIED DEMENTIA WITHOUT BEHAVIORAL DISTURBANCE Qualifiers: Dementia type: unspecified type Dementia behavioral disturbance: without behavioral disturbance Qualified Code(s): F03.90 - Unspecified dementia without behavioral disturbance (3) Hypertension Code(s): I10 - ESSENTIAL (PRIMARY) HYPERTENSION Qualifiers: Hypertension type: essential hypertension Qualified Code(s): I10 - Essential (primary) hypertension
[2018-12-22] MEDS ORDERED: PANTOPRAZOLE 40 MG TABLET (FP) PO SCH (22:00)
[2018-12-22] MEDS: OLANZapine 5 MG TABLET PO SCH (23:50)
[2018-12-23 08:34] LABS: BLOOD UREA NITROGEN 12.3 mg/dL (7-18); CALCIUM 7.7 mg/dL (8.5-10.1); CREATININE 0.4 mg/dL (0.55-1.3); HEMATOCRIT 27.8 % (32.4-45.2); HEMOGLOBIN 9.7 GM/dL (10.7-15.3); MCH 32.4 pg (25.7-33.7); MCHC 34.8 g/dl (32.0-36.0); MEAN CELL VOLUME 93.1 fl (80-96); MEAN PLT VOLUME 9.3 fl (7.5-11.1); PLATELET COUNT 257 K/MM3 (134-434); POTASSIUM 3.7 mmol/L (3.5-5.1); RBC 2.99 M/mm3 (3.60-5.2); RDW 12.8 % (11.6-15.6); WHITE BLOOD COUNT 10.5 K/mm3 (4.0-10.0)
[2018-12-23] MEDS ORDERED: PT OWN MED DRAWER 7, Y5N ONE ×2 (09:45→18:17)
[2018-12-23] MEDS: FAMOTIDINE 20 MG TABLET PO SCH ×2 (10:02→21:26)
[2018-12-23] MEDS: ENOXAPARIN NA (PORCINE) 40 MG/0.4 ML DISP.SYRIN SQ SCH (10:02)
[2018-12-23] MEDS: MULTIVITAMINS (DAILY MVI) TABLET (FP) PO SCH (10:02)
[2018-12-23] MEDS: DOCUSATE SODIUM 100 MG CAPSULE (FP) PO SCH (10:02)
[2018-12-23] MEDS: amLODIPine BESYLATE 5 MG TABLET (FP) PO SCH (10:02)
[2018-12-23] MEDS: RIVASTIGMINE TARTRATE 1.5 MG CAPSULE PO SCH ×2 (10:02→16:42)
[2018-12-23] MEDS: ASPIRIN 81 MG CHEWABLE TABLETS PO SCH (10:02)
[2018-12-23] MEDS: ACETAMINOPHEN 325 MG TABLET (FP) PO PRN ×2 (10:16→19:57)
--- NOTE | 2018-12-23 11:33 | PN ---
Progress Note (short form) - Note Progress Note: ORTHOPEDIC SURGERY PROGRESS NOTE Department of Orthopedic Surgery SUBJECTIVE No acute overnight events. No complaints currently. Denies chest pain, shortness of breath, or calf pain. Tolerating oral intake. Pain controlled. Patient was able to get up with PT. Patient is confused again. Abduction and SCDs in place. PHYSICAL EXAMINATION General: Alert, confused, cooperative and no distress. Lower Extremity: Dressing clean/dry/intact; Skin intact, no lesions, rashes or ulcers noted. Muscle mass equal and symmetric to contralateral side. No atrophy noted. No masses or effusions noted. No tenderness to palpation. Full passive and active ROM of the knee and ankle, free from pain. EHL/TA/GS motor intact; SILT distally; 2+ DP pulses; Cap refill brisk. DVT Exam: No evidence of DVT seen on physical exam; No cords or calf tenderness ; No significant calf/ankle edema. Intake & Output 12/21/18 12/22/18 12/23/18 23:59 23:59 23:59 Intake Total 1061 480 310 Output Total 1800 200 Balance -739 280 310 Intake: IV 825 Lactated Ringers Solution 825 1,000 ml @ 75 mls/hr IV ASDIR [facility]GAR Rx#:[id number] Oral 236 480 310 Output: Urine 1800 200 Littlejohn 1800 200 Other: Voiding Method Indwelling Catheter Diaper Incontinent # Unmeasured Voids Littlejohn 1 1 Bowel Movement No No # Bowel Movements 1 Active Medications Generic Name Dose Route Start Last Admin Trade Name Freq PRN Reason Stop Dose Admin Acetaminophen 650 mg 12/19/18 17:40 12/23/18 10:16 Tylenol - PO 650 mg Q4H PRN Administration PAIN LEVEL 1-5 Amlodipine Besylate 5 mg 12/21/18 10:00 12/23/18 10:02 Norvasc - PO 5 mg DAILY [facility] Administration Aspirin 81 mg 12/21/18 10:00 12/23/18 10:02 Asa - PO 81 mg DAILY [facility] Administration Docusate Sodium 100 mg 12/21/18 10:45 12/23/18 10:02 Colace - PO 100 mg DAILY [facility] Administration Enoxaparin Sodium 40 mg 12/21/18 10:00 12/23/18 10:02 Lovenox - SQ 40 mg DAILY [facility] Administration Famotidine 20 mg 12/23/18 10:00 12/23/18 10:02 Pepcid - PO 20 mg BID [facility] Administration Multivitamins/Minerals/Vitamin C 1 tab 12/20/18 10:00 12/23/18 10:02 Tab-A-Vit - PO 1 tab DAILY [facility] Administration Olanzapine 5 mg 12/22/18 22:00 12/22/18 23:50 Zyprexa - PO 5 mg HS [facility] Administration Ondansetron HCl 4 mg 12/19/18 19:17 12/19/18 18:48 Zofran Injection IVPUSH 4 mg Q6H PRN Administration NAUSEA AND/OR VOMITING Rivastigmine Tartrate 4.5 mg 12/20/18 17:30 12/23/18 10:02 Exelon PO 4.5 mg BID@0800,1730 [facility] Administration Senna 2 tab 12/21/18 10:34 Senna - PO HS PRN CONSTIPATION Vital Signs (last) Temp Pulse Resp BP Pulse Ox 97.5 F L 89 20 129/74 93 L 12/23/18 10:00 12/23/18 10:00 12/23/18 10:00 12/23/18 10:00 12/23/18 09:00 Laboratory (coagulation) PT with INR 13.20 SEC (9.7-13.0) H 12/19/18 06:30 Laboratory 12/23/18 07:00 12/23/18 07:00 ASSESSMENT AND PLAN Ms. Mark is an 88 year old female s/p Left hip Hemiarthroplasty Post Op Day 4 - Pain control: Transition to oral pain medications, minimize narcotic use - DVT prophylaxis (Lovenox 40mg SQ Daily x 30 days) - Follow up Labs, transfuse hemaglobin below 8 - Elevate HOB, encourage oral intake - Appreciate GI consult - Appreciate medical management (constipation relief, nutrition optimization, decubitus precautions heel/sacrum) - PT Daily; WBAT LLE - ICE to left hip; Keep dressings dry - Dressing Change POD 5 - D/C [place] POD 14 - Abduction pillow in place while in bed - Knee immobilizer to left knee while in bed - SCD's bilateral lower extremities - Follow up in my office on POD 14 - Dispo planning
--- NOTE | 2018-12-23 11:43 | PN ---
Progress Note, Physician History of Present Illness: 88 y/o female presenting to [facility] ER complaining of left hip pain and difficulty ambulating after falling around 17:30 this evening. The pt fell to her left side from seated position on a radiator cover at home. Reports striking her head but denies headache, neck pain, or LOC. Was not able to stand afterwards, but crawled into a seated position. The fall was witnessed but her son arrived at her side within approx. 15 min. Pt takes baby ASA daily. No anticoagulants. - Current Medication List Current Medications: Active Medications Acetaminophen (Tylenol -) 650 mg PO Q4H PRN PRN Reason: PAIN LEVEL 1-5 Last Admin: 12/23/18 10:16 Dose: 650 mg Amlodipine Besylate (Norvasc -) 5 mg PO DAILY [facility] Last Admin: 12/23/18 10:02 Dose: 5 mg Aspirin (Asa -) 81 mg PO DAILY [facility] Last Admin: 12/23/18 10:02 Dose: 81 mg Docusate Sodium (Colace -) 100 mg PO DAILY [facility] Last Admin: 12/23/18 10:02 Dose: 100 mg Enoxaparin Sodium (Lovenox -) 40 mg SQ DAILY [facility] Last Admin: 12/23/18 10:02 Dose: 40 mg Famotidine (Pepcid -) 20 mg PO BID [facility] Last Admin: 12/23/18 10:02 Dose: 20 mg Multivitamins/Minerals/Vitamin C (Tab-A-Vit -) 1 tab PO DAILY [facility] Last Admin: 12/23/18 10:02 Dose: 1 tab Olanzapine (Zyprexa -) 5 mg PO HS [facility] Last Admin: 12/22/18 23:50 Dose: 5 mg Ondansetron HCl (Zofran Injection) 4 mg IVPUSH Q6H PRN PRN Reason: NAUSEA AND/OR VOMITING Last Admin: 12/19/18 18:48 Dose: 4 mg Rivastigmine Tartrate (Exelon) 4.5 mg PO BID@0800,1730 [facility] Last Admin: 12/23/18 10:02 Dose: 4.5 mg Senna (Senna -) 2 tab PO HS PRN PRN Reason: CONSTIPATION - Objective Vital Signs: Vital Signs Temperature 97.5 F L 12/23/18 10:00 Pulse Rate 89 12/23/18 10:00 Respiratory Rate 20 12/23/18 10:00 Blood Pressure 129/74 12/23/18 10:00 O2 Sat by Pulse Oximetry (%) 93 L 12/23/18 09:00 Eyes: Yes: WNL, Conjunctiva Clear, EOM Intact HENT: Yes: WNL, Atraumatic, Normocephalic Neck: Yes: WNL, Supple, Trachea Midline Cardiovascular: Yes: WNL, Regular Rate and Rhythm Respiratory: Yes: WNL, Regular, CTA Bilaterally Gastrointestinal: Yes: WNL, Normal Bowel Sounds Genitourinary: Yes: WNL Musculoskeletal: Yes: WNL Extremities: Yes: WNL Edema: No Integumentary: Yes: WNL Neurological: Yes: WNL, Alert, Oriented ...Motor Strength: WNL Psychiatric: Yes: WNL Labs: CBC, BMP 12/23/18 07:00 12/23/18 07:00 INR, PTT INR 1.12 (0.83-1.09) H 12/19/18 06:30 Assessment/Plan Left femur fx s/p op day#2 s/p mechanical fall no syncope echo april 2017 nl ef moderate AR, TR, nl rvsp htn, dementia ekg old septal mi unchanged, new lateral st changes ? LVH new from 2018 as per son no angina, chf, cad or recent mi Plan post op care as per ortho dvt plx echo
--- NOTE | 2018-12-23 21:04 | PN ---
Progress Note (short form) - Note Progress Note: HPI: Pt is POD3. Pt is medically cleared for SNF, but remains due to unavailability of beds at rehab. Pt remains with multiple sundowning events and pleasantly confused. PE: GEN: NAD, awake, alert, oriented x3 at time of exam HEENT: NC/AT, ABIEL, sclera anicteric, MMM LUNG: CTA b/l with diminished breath sounds at the bases. No wheezes, on RA Card: RRR no murmurs appreciated ABD: Soft, NT/ND, hypoactive BS, no guarding EXT: L leg with immobilizer cast on board, distal pulses strong, motion limited 2/2 to pain Active Medications Acetaminophen (Tylenol -) 650 mg PO Q4H PRN PRN Reason: PAIN LEVEL 1-5 Last Admin: 12/23/18 19:57 Dose: 650 mg Amlodipine Besylate (Norvasc -) 5 mg PO DAILY [facility] Last Admin: 12/23/18 10:02 Dose: 5 mg Aspirin (Asa -) 81 mg PO DAILY [facility] Last Admin: 12/23/18 10:02 Dose: 81 mg Docusate Sodium (Colace -) 100 mg PO DAILY [facility] Last Admin: 12/23/18 10:02 Dose: 100 mg Enoxaparin Sodium (Lovenox -) 40 mg SQ DAILY [facility] Last Admin: 12/23/18 10:02 Dose: 40 mg Famotidine (Pepcid -) 20 mg PO BID [facility] Last Admin: 12/23/18 21:26 Dose: 20 mg Multivitamins/Minerals/Vitamin C (Tab-A-Vit -) 1 tab PO DAILY [facility] Last Admin: 12/23/18 10:02 Dose: 1 tab Olanzapine (Zyprexa -) 5 mg PO HS [facility] Last Admin: 12/23/18 21:26 Dose: 5 mg Ondansetron HCl (Zofran Injection) 4 mg IVPUSH Q6H PRN PRN Reason: NAUSEA AND/OR VOMITING Last Admin: 12/19/18 18:48 Dose: 4 mg Rivastigmine Tartrate (Exelon) 4.5 mg PO BID@0800,1730 [facility] Last Admin: 12/23/18 16:42 Dose: 4.5 mg Senna (Senna -) 2 tab PO HS PRN PRN Reason: CONSTIPATION Assessment and Plan: L closed hip fracture POD 2 Delirium 2/2 to dementia H/o HTN 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
[2018-12-23] MEDS: OLANZapine 5 MG TABLET PO SCH (21:26)
--- NOTE | 2018-12-24 08:56 | PN ---
Progress Note (short form) - Note Progress Note: ORTHOPEDIC SURGERY PROGRESS NOTE Department of Orthopedic Surgery SUBJECTIVE No acute overnight events. No complaints currently. Denies chest pain, shortness of breath, or calf pain. Tolerating oral intake. Pain controlled. Patient was able to get up with PT. Patient is confused again. Abduction and SCDs in place. PHYSICAL EXAMINATION General: Alert, confused, cooperative and no distress. Lower Extremity: Dressing clean/dry/intact - changed today; Skin intact, no lesions, rashes or ulcers noted. Muscle mass equal and symmetric to contralateral side. No atrophy noted. No masses or effusions noted. No tenderness to palpation. Full passive and active ROM of the knee and ankle, free from pain. EHL/TA/GS motor intact; SILT distally; 2+ DP pulses; Cap refill brisk. DVT Exam: No evidence of DVT seen on physical exam; No cords or calf tenderness ; No significant calf/ankle edema. Intake & Output 12/22/18 12/23/18 12/24/18 23:59 23:59 23:59 Intake Total 480 1326 330 Output Total 200 Balance 280 1326 330 Intake: Oral 480 1090 330 Oral Supplement 236 Output: Urine 200 Littlejohn 200 Other: Voiding Method Diaper Incontinent Incontinent # Unmeasured Voids Littlejohn 1 1 2 Bowel Movement No No # Bowel Movements 1 Active Medications Generic Name Dose Route Start Last Admin Trade Name Freq PRN Reason Stop Dose Admin Acetaminophen 650 mg 12/24/18 15:08 Tylenol - PO Q4H PRN FEVER Amlodipine Besylate 5 mg 12/21/18 10:00 12/24/18 09:25 Norvasc - PO 5 mg DAILY [facility] Administration Aspirin 81 mg 12/21/18 10:00 12/24/18 09:25 Asa - PO 81 mg DAILY [facility] Administration Docusate Sodium 100 mg 12/21/18 10:45 12/24/18 09:26 Colace - PO 100 mg DAILY [facility] Administration Enoxaparin Sodium 40 mg 12/21/18 10:00 12/24/18 09:25 Lovenox - SQ 40 mg DAILY [facility] Administration Famotidine 20 mg 12/23/18 10:00 12/24/18 09:26 Pepcid - PO 20 mg BID [facility] Administration Multivitamins/Minerals/Vitamin C 1 tab 12/20/18 10:00 10/31/19 09:26 Tab-A-Vit - PO 1 tab DAILY [facility] Administration Olanzapine 5 mg 12/22/18 22:00 12/23/18 21:26 Zyprexa - PO 5 mg HS [facility] Administration Ondansetron HCl 4 mg 12/19/18 19:17 12/19/18 18:48 Zofran Injection IVPUSH 4 mg Q6H PRN Administration NAUSEA AND/OR VOMITING Rivastigmine Tartrate 4.5 mg 12/20/18 17:30 12/24/18 09:26 Exelon PO 4.5 mg BID@0800,1730 [facility] Administration Senna 2 tab 12/21/18 10:34 Senna - PO HS PRN CONSTIPATION Vital Signs (last) Temp Pulse Resp BP Pulse Ox 97.7 F 81 20 130/66 93 L 12/24/18 15:10 12/24/18 15:10 12/24/18 09:00 12/24/18 15:10 12/24/18 09:00 Laboratory (coagulation) PT with INR 13.20 SEC (9.7-13.0) H 12/19/18 06:30 Laboratory 12/24/18 07:00 12/23/18 07:00 ASSESSMENT AND PLAN Ms. Mark is an 88 year old female s/p Left hip Hemiarthroplasty Post Op Day 5 - Pain control: Transition to oral pain medications, minimize narcotic use - DVT prophylaxis (Lovenox 40mg SQ Daily x 30 days post surgery) - Follow up Labs, transfuse if medically necessary - Elevate HOB, encourage oral intake - Appreciate GI consult - Appreciate medical management (constipation relief, nutrition optimization, decubitus precautions heel/sacrum) - PT Daily; WBAT LLE - Posterior Hip Precautions - ICE to left hip; Keep dressings dry - Dressings changed today. No signs of infection, no drainage. - D/C [place] POD 14 - Abduction pillow in place while in bed - Knee immobilizer to left knee while in bed - SCD's bilateral lower extremities while in bed - Follow up in my office on POD 14 - Dispo planning
[2018-12-24 09:10] LABS: HEMOGLOBIN 10.7 GM/dL (10.7-15.3); MCH 32.1 pg (25.7-33.7); MCHC 34.5 g/dl (32.0-36.0); MEAN CELL VOLUME 93.2 fl (80-96); PLATELET COUNT 340 K/MM3 (134-434); RBC 3.32 M/mm3 (3.60-5.2); WHITE BLOOD COUNT 12.1 K/mm3 (4.0-10.0)
[2018-12-24] MEDS: ENOXAPARIN NA (PORCINE) 40 MG/0.4 ML DISP.SYRIN SQ SCH (09:25)
[2018-12-24] MEDS: ASPIRIN 81 MG CHEWABLE TABLETS PO SCH (09:25)
[2018-12-24] MEDS: ACETAMINOPHEN 325 MG TABLET (FP) PO PRN (09:25)
[2018-12-24] MEDS: amLODIPine BESYLATE 5 MG TABLET (FP) PO SCH (09:25)
[2018-12-24] MEDS: MULTIVITAMINS (DAILY MVI) TABLET (FP) PO SCH (09:26)
[2018-12-24] MEDS: DOCUSATE SODIUM 100 MG CAPSULE (FP) PO SCH (09:26)
[2018-12-24] MEDS: FAMOTIDINE 20 MG TABLET PO SCH (09:26)
[2018-12-24] MEDS: RIVASTIGMINE TARTRATE 1.5 MG CAPSULE PO SCH ×2 (09:26→17:06)
[2018-12-24] MEDS ORDERED: ACETAMINOPHEN 325 MG TABLET (FP) PO PRN (15:08)
[2018-12-24 15:12] VITALS: BP 130/66; PULSE 81; TEMP 97.7
== END 2018-12-24 18:24 | DRG 470 ==
LOC: JER 18:47 → JERBED 22:06 → J6S 12-19 00:21 → UNDODISIN 12-24 18:02
PROVIDERS: ADMIT Internal Medicine; ATTEND Internal Medicine
PROC: 0SRS0JA Replacement of Left Hip Joint, Femoral Surface with Synthetic Substitute, Uncemented, Open Approach (ICD-10-PCS; principal; 2018-12-19 13:00)
DX: S72.092A Other fracture of head and neck of left femur, initial encounter for closed fracture (principal); F03.91 Unspecified dementia, unspecified severity, with behavioral disturbance; K92.0 Hematemesis; E78.00 Pure hypercholesterolemia, unspecified; I10 Essential (primary) hypertension; D32.9 Benign neoplasm of meninges, unspecified; F40.240 Claustrophobia; F41.8 Other specified anxiety disorders; R41.0 Disorientation, unspecified; W18.39XA Other fall on same level, initial encounter; Z88.0 Allergy status to penicillin; Z66 Do not resuscitate; Y92.092 Bedroom in other non-institutional residence as the place of occurrence of the external cause
CPT/HCPCS: 36415; 70450-TC; 71045-TC-FY; 72192-TC; 73502-TC-LT-FY; 73523-TC-FY; 73552-TC-LT-FY; 80048; 80053; 81003; 82040; 85025; 85027; 85610; 85730; 86850; 86900; 86901; 88305-TC; 88311-TC; 93005; 93010; 94010; 94760; 97116-GP; 99283-25